=== PATIENT | female | born 1975 | race Caucasian/White ===

== ENCOUNTER 2020-06-05 11:10 | Outpatient (REF) | payer BC, SELFPAY ==
--- NOTE | 2020-06-05 08:45 | PAPFT_PTH ---
PATIENT: Karen Cody LOC: [facility] U#:[id number] AGE/SX: 44/F ROOM: RE06/05/[address]: Brandy Douglass NP : 1975 BED: DIS: 06/05/2020 SPEC #: [id number] RECD: 06/05/20 12:56 STATUS: ARTURO RERadha #: [id number] JANICE: 06/05/20 08:[address]: Brandy Douglass NP DEPT: [facility] Cytology RECD BY: Sangeetha Rao ENTERED: 06/05/20 12:56 SP TYPE: PAPFT CONNIE DR: Unknown,Unknown Tissues: 1 - CX/ENDOCX FOR PAP SMEARS Procedures: PAP THIN PREP/UVM Screening HPV DNA PROBE Comments: [id number] (CHLAMYDIA/GC)
[2020-06-06 13:57] LABS: Chlamydia Result Negative (Negative); GC Result Negative (Negative)
== END 2020-06-05 11:30 ==
LOC: LBN 11:10
PROVIDERS: Visit Provider Nurse Practitioner Women's Health
DX: Z11.51 Encounter for screening for human papillomavirus (HPV) (principal); Z11.3 Encounter for screening for infections with a predominantly sexual mode of transmission; Z12.4 Encounter for screening for malignant neoplasm of cervix
CPT/HCPCS: 87491; 87591; 88142; 87624

== ENCOUNTER 2020-09-09 14:42 | Outpatient (REF) | payer BC, SELFPAY ==
[2020-09-13 00:06] LABS: SARS-CoV-2 RNA Undetected (Undetected); SARS-CoV-2 Specimen Source Nasal
== END 2020-09-09 15:02 ==
LOC: NCHCN 14:42
PROVIDERS: PCP Nurse Practitioner Family; Visit Provider Nurse Practitioner Family
DX: R51.9 Headache, unspecified (principal)
CPT/HCPCS: U0003

== ENCOUNTER 2020-11-06 03:21 | Outpatient (CLI) | payer BC, SELFPAY ==
--- NOTE | 2020-11-06 11:00 | DI.MAMMO_ITS ---
EXAM: MG MAMMO SCREENING CLINICAL HISTORY: screening. TECHNIQUE: Bilateral full field digital CC and MLO mammographic images were obtained with 3D tomosyn thesis and utilizing computer aided detection (CAD). COMPARISON: Prior mammograms dating back to 2010, the most recent being May 2018.. FINDINGS: The fibroglandular tissue is moderately dense. No new significant radiograph findings in the left breast. It toward the upper outer quadrant of the right breast there is a nodular density noted which measures approximately 8 x 9 millimeters and is located approximately 7 centimetres in from the nipple, lateral of center. There are no malignant-ap pearing microcalcification groups in this region or elsewhere in either breast. Spot compression CC and MLO views recommended. Also recommend breast ultrasound. There is no significant architectural distortion nor skin thickening-retraction. IMPRESSION: No radiographic evidence of malignancy in the left breast.. Right breast nodule as described above. Spot compression 3D cc and MLO views recommended. Also milvia mmend breast ultrasound. BI-RADS Category 0 - Assessment Incomplete: Need additional imaging evaluation Breast Density - Category C - Heterogeneously dense Breast density Category C or D implies that the patient has dense breast tissue. Dense breast tissue can make it harder to find cancer on a mammogram. Dense breast tissue is also associated with an incr eased risk of breast cancer. This information about the result of the mammogram report was provided to the patient to raise their awareness. Use this report when you speak with the patient about their risks for breast cancer, which includes their family history. At that time, you may recommend additional screening tests (Ultrasoun d or MRI) as these tests may add significant information. A negative radiographic report should not delay biopsy if a dominant or clinically suspicious mass is present. Up to ten percent of cancers are not identified on mammography. A negative report may reinforce clinical impression. Adenosis and dense breasts may obscure an underlying neoplasm. False positive reports average 6 to 10%. Patient will receive a letter notifying them of these results.
== END 2020-11-06 03:41 ==
PROVIDERS: PCP Nurse Practitioner Family; Visit Provider Nurse Practitioner Women's Health
DX: Z12.31 Encounter for screening mammogram for malignant neoplasm of breast (principal); R92.8 Other abnormal and inconclusive findings on diagnostic imaging of breast
CPT/HCPCS: 77063; 77067

== ENCOUNTER 2020-11-13 03:06 | Outpatient (CLI) | payer BC, SELFPAY ==
--- NOTE | 2020-11-13 | DI.US_ITS ---
EXAM: US BREAST RT LIMITED CLINICAL HISTORY: F/U ABNL MAMMO, RT BREAST NODULE. TECHNIQUE: Limited ultrasound of the right breast was performed. COMPARISON: Prior mammograms were reviewed. Most recent mammogram 11/06/2020 FINDINGS: No evidence of solid or significant cystic lesions seen on ultrasound. This implies that the asymmetric density seen in the upper outer quadrant is most probably just asymm etric tissue as opposed to true pathology. IMPRESSION: No significant ultrasound findings Appropriate follow-up is repeat right breast mammogram in 6 months. Findings and recommendations were discussed by myself with the patient today. BI-RADS Category 3 - 3 month - Probably Benign Finding: Recommend follow-up mammography in 6 months Breast Density - Category C - Heterogeneously dense Breast density Category C or D implies that the patient has dense breast tissue. Dense breast tissue can make it harder to find cancer on a mammogram. Dense breast tissue is also associated with an incr eased risk of breast cancer. This information about the result of the mammogram report was provided to the patient to raise their awareness. Use this report when you speak with the patient about their risks for breast cancer, which includes their family history. At that time, you may recommend additional screening tests (Ultrasoun d or MRI) as these tests may add significant information. A negative radiographic report should not delay biopsy if a dominant or clinically suspicious mass is present. Up to ten percent of cancers are not identified on mammography. A negative report may reinforce clinical impression. Adenosis and dense breasts may obscure an underlying neoplasm. False positive reports average 6 to 10%. Patient will receive a letter notifying them of these results.
--- NOTE | 2020-11-13 14:20 | DI.MAMMO_ITS ---
EXAM: MG MAMMO SCREEN CALL BACK UNI CLINICAL HISTORY: F/U MAMMO, RT BREAST NODULE. TECHNIQUE: Bilateral full field digital CC and MLO mammographic images were obtained with 3D tomosyn thesis and utilizing computer aided detection (CAD). COMPARISON: Prior mammograms dating back to 2010, the most recent being November 06, 2020. FINDINGS: Additional spot compression mammographic 3D views are doubtful for presence of a truly concerning nod ule. Please note that breast ultrasound also performed today did not reveal significant focal findings. IMPRESSION: No radiographic evidence of malignancy. Appropriate follow-up is repeat right breast mammogram in 6 months. BI-RADS Category 3 - 6 month - Probably Benign Finding: Recommend follow-up mammography in 6 months Breast Density - Category C - Heterogeneously dense Breast density Category C or D implies that the patient has dense breast tissue. Dense breast tissue can make it harder to find cancer on a mammogram. Dense breast tissue is also associated with an incr eased risk of breast cancer. This information about the result of the mammogram report was provided to the patient to raise their awareness. Use this report when you speak with the patient about their risks for breast cancer, which includes their family history. At that time, you may recommend additional screening tests (Ultrasoun d or MRI) as these tests may add significant information. A negative radiographic report should not delay biopsy if a dominant or clinically suspicious mass is present. Up to ten percent of cancers are not identified on mammography. A negative report may reinforce clinical impression. Adenosis and dense breasts may obscure an underlying neoplasm. False positive reports average 6 to 10%. Patient will receive a letter notifying them of these results.
== END 2020-11-13 03:26 ==
PROVIDERS: PCP Nurse Practitioner Family; Visit Provider Nurse Practitioner Women's Health
DX: R92.8 Other abnormal and inconclusive findings on diagnostic imaging of breast (principal)
CPT/HCPCS: 76642; 77063; 77067

== ENCOUNTER 2020-12-19 16:17 | Outpatient (REF) | payer BC, SELFPAY ==
[2020-12-20 13:41] LABS: COVID-19 RT-PCR UVMMC Result Negative (Negative)
== END 2020-12-19 16:18 | disposition home or self-care (01) ==
LOC: NCHCN 16:17
PROVIDERS: PCP Nurse Practitioner Family; Visit Provider Nurse Practitioner Family
DX: Z20.822 Contact with and (suspected) exposure to COVID-19 (principal)
CPT/HCPCS: U0003

== ENCOUNTER 2021-04-23 16:31 | Outpatient (REF) | payer BC, SELFPAY ==
[2021-04-23 13:15] LABS: ALT 22 U/L (14-59); AST 15 U/L (15-37)
[2021-04-23 16:27] LABS: Calculated LDL 122 mg/dL (<100); Cholesterol 194 mg/dL (<200); HDL Cholesterol 56 mg/dL (40-60); Triglyceride 80 mg/dL (<150)
== END 2021-04-23 16:32 | disposition home or self-care (01) ==
LOC: NCHCN 16:31
PROVIDERS: PCP Nurse Practitioner Family; Visit Provider Nurse Practitioner Family
DX: Z00.00 Encounter for general adult medical examination without abnormal findings (principal); Z13.220 Encounter for screening for lipoid disorders
CPT/HCPCS: 80061; 84450; 84460

== ENCOUNTER 2021-05-14 02:22 | Outpatient (CLI) | payer BC, SELFPAY ==
--- NOTE | 2021-05-14 07:00 | DI.MAMMO_ITS ---
Exam(s) MAMMO DIAGNOSTIC UNI EXAM: MAMMO DIAGNOSTIC UNI CLINICAL HISTORY: F/u R breast, F/U ABNL MAMMO, 6 MO F/U,R92.8. TECHNIQUE: Unilateral spot CC mammographic images were obtained with 3D Tomosynthesistechnique and u tilizing computer aided detection (CAD). Also conventional CC and MLO views of the right breast. COMPARISON: Prior mammograms dating back to 2014, the most recent being November 2020. Ultrasound [facility] 2020 was also reviewed FINDINGS: The previously described asymmetric density in the right breast appears unchanged. Additional spot c ompression 3D view performed today renders this area less concerning. There are no malignant-appearing microcalcification groups in this region or elsewhere in the right b reast. No new architectural distortion or skin thickening-traction. IMPRESSION: Stable benign-appearing right breast findings described above. Appropriate follow-up is to keep this patient on her yearly mammogram schedule, this implying the nex t bilateral mammogram would be in November 2021. I recommend repeat ultrasound examination at that ti wi. Indeed, given the density of her fibroglandular tissue I suggest that she undergo bilateral [facility] ultrasound examination in November 2021. Of course earlier imaging would be performed if there is a self detected breast change noted. The patient was informed of the findings and follow-up recommendations [facility]. BI-RADS Category 3 - 6 month - Probably Benign Finding: Recommend follow-up mammography in 6 months Breast Density - Category C - Heterogeneously dense Breast density Category C or D implies that the patient has dense breast tissue. Dense breast tissue can make it harder to find cancer on a mammogram. Dense breast tissue is also associated with an incr eased risk of breast cancer. This information about the result of the mammogram report was provided to the patient to raise their awareness. Use this report when you speak with the patient about their risks for breast cancer, which includes their family history. At that time, you may recommend additional screening tests (Ultrasoun d or MRI) as these tests may add significant information. A negative radiographic report should not delay biopsy if a dominant or clinically suspicious mass is present. Up to ten percent of cancers are not identified on mammography. A negative report may reinforce clinical impression. Adenosis and dense breasts may obscure an underlying neoplasm. False positive reports average 6 to 10%. Patient will receive a letter notifying them of these results.
== END 2021-05-14 02:42 ==
PROVIDERS: PCP Nurse Practitioner Family; Visit Provider Nurse Practitioner Women's Health
DX: R92.8 Other abnormal and inconclusive findings on diagnostic imaging of breast (principal)
CPT/HCPCS: 77061; 77065; G0279

== ENCOUNTER 2021-06-02 20:18 | Emergency (ER) | payer BC, SELFPAY ==
[2021-06-02 20:21] VITALS: BP 129/83; PULSE 80; RESP 17; TEMP 36.8; O2SAT 99
--- NOTE | 2021-06-02 20:43 | W.ED.GENAD ---
Discharge Plan Disposition Patient Disposition: HOME Condition: Improving Discharge Details Clinical Impression: Pharyngitis Primary Care Provider: Lupe Gonzalez ED Provider: Dayo Jaimes Home Meds and New Rx's Prescriptions: New penicillin V potassium 500 mg tablet 500 mg PO TID 10 Days Qty: 30 RF: 0 Continued Mirena 1 EACH intrauterine device 1 ea Intrauterine DIRECTED RF: 0 acetaminophen [Tylenol Extra Strength] 500 MG tablet 500 mg PO PRN RF: 0 diphenhydramine HCl [Benadryl] 25 MG capsule 50 mg PO PRN RF: 0 paroxetine HCl 20 mg tablet 20 mg PO DAILY Qty: 30 RF: 5 hydroxyzine pamoate [Vistaril] 25 mg capsule 25 mg PO PRN PRNRF: 0 pregabalin 75 mg capsule 75 mg PO BID RF: 0 Discharge Instructions Instructions: Pharyngitis (ED) Additional Instructions: Take penicillin as prescribed. He will have a laboratory culture of the throat pending as well as your outpatient Covid test. Please follow-up with otolaryngology as planned. Home to rest this evening. Small, frequent sips of fluids to maintain hydration. Tylenol and ibuprofen as needed for pain. Return to the emergency department for any acute concerns. Stand Alone Forms: Work Release Medical Decision Making This is a 45-year-old female complains of 2 days of sore throat similar to previous episodes of streptococcal pharyngitis. She states she recently also traveled to [place] to visit her unimmunized parents. She states she has had a number of episodes of sore throat for which she has been evaluated at the [place] walk-in urgent care, diagnosed with strep on laboratory culture, and treated with a course of Keflex. Today she demonstrates erythematous oropharynx with scant exudate, has a negative rapid strep test which she states is the usual for me. I discussed with her proceeding with confirmatory laboratory culture, a course of penicillin given possibility of partially extruded strep infection, and her maintenance of follow-up as planned in otolaryngology clinic. We will also obtain a send out Covid test as a precaution. HPI General Mode of arrival: ambulatory. Date/Time Provider Initiated Documentation: 06/02/21 20:18. Limitations to Documentation: no limitations. Information obtained by: patient. History of Present Illness 45 year old F presents to the emergency department with the chief complaint of Sore throat, recurrent, described as moderate and similar to prior episodes, Quality is described as dull and constant, and is localized to the mouth. Patient reports no radiation. Patient started experiencing this day(s) and it has been constant. No relieving factors improve symptom(s), No exacerbating factors reported . Patient notes denies chest pain, loss of appetite, nausea/vomiting and shortness of breath. Related Data Home Medications Medication Instructions Recorded Confirmed Mirena 1 ea INTRAUTERINE DIRECTED 01/03/14 06/02/21 acetaminophen [Tylenol Extra 500 mg PO PRN tab-cap 12/13/14 06/02/21 Strength] diphenhydramine HCl [Benadryl] 50 mg PO PRN tab-cap 12/13/14 06/02/21 paroxetine HCl 20 mg tablet 20 mg PO DAILY #30 tab 03/06/19 06/02/21 hydroxyzine pamoate [Vistaril] 25 mg PO PRN PRN 06/02/21 06/02/21 penicillin V potassium 500 mg PO TID 10 Days #30 tab 06/02/21 pregabalin 75 mg PO BID 06/02/21 06/02/21 Previous Rx's Medication Instructions Recorded paroxetine HCl 20 mg tablet 20 mg PO DAILY #30 tab 03/06/19 penicillin V potassium 500 mg PO TID 10 Days #30 tab 06/02/21 Allergies Allergy/AdvReac Type Severity Reaction Status Date / Time Sulfa (Sulfonamide Allergy Skin Rash Unverified 06/02/21 20:24 Antibiotics) erythromycin base AdvReac Intermediate GI upset Unverified 06/02/21 20:24 General Stated Complaint: Sorethroat KRYSTAL: 4 Review of Systems Narrative: No vomiting, tolerating p.o., no change to her voice or swallowing. 6 systems reviewed and otherwise negative [facility] Medical History Anxiety controlled with Paxil Depression Fibromyalgia syndrome (11/06/17) dx by rheumatolgy Center [facility] [place] IUD surveillance (06/05/20) Vitamin D deficiency disease Surgical History Cervical Procedure 1998 LEEP Left knee lateral release Open Carpal Tunnel release (12/25/14) L hand. Right knee meniscus tear repair Family History Mother , COPD at age 58. COPD (chronic obstructive pulmonary disease) Paternal Grandmother Breast cancer Other Heart disease Social History Smoking/Tobacco Use Status: Former Tobacco Use Smoking risk assessment performed?: Yes Alcohol Intake: current Alcohol Intake frequency: 0-2 drinks per day Drug use: Never Substance use type: does not use Do you feel safe at home: Yes Do you feel safe in your relationship?: Yes History History 3 Para 2 Hx # Term Pregnancies Multiple births Hx # Pregnancies Ectopic pregnancies AB induced Hx Number of Living Children AB spontaneous Exam Narrative Exam Narrative: GEN: awake, alert, oriented 3. Pleasant, well groomed, interactive. HEAD: Normocephalic, atraumatic ENT: Mucous membranes moist, oropharynx with erythematous tonsillar pillars, discrete white exudate right posterior. Uvula is midline. There is mild anterior submandibular present. Tympanic membranes clear bilaterally, External ear exam unremarkable EYES: PERRL, EOMI NECK: Full ROM, no DOMINGO, no menigismus CHEST/RESP: Nontender, clear to auscultation bilateral, no wheeze/rhonchi/rales CARDIOVASCULAR: RRR, no murmur, rub dodie. 2+ Rad pulse bilateral EXT: Full ROM, no edema, no rash Neuro: Grossly normal neurologic exam, conversant, interactive. Psych: Speech fluent, thoughts congruent, affect normal Course Vital Signs Vital signs: Vital Signs Temperature 36.8 C 06/02/21 20:21 Pulse 80 06/02/21 20:21 Respiratory Rate 17 06/02/21 20:21 Blood Pressure 129/83 06/02/21 20:21 Pulse Oximetry 99 06/02/21 20:21 Temperature 36.8 C 06/02/21 20:21 Temperature Source Temporal Artery Scan 06/02/21 20:21 Pulse 80 06/02/21 20:21 Respiratory Rate 17 06/02/21 20:21 Respiratory Effort Non-Labored 06/02/21 20:23 Blood Pressure 129/83 06/02/21 20:21 Blood Pressure Position Sitting 06/02/21 20:21 Pulse Oximetry 99 06/02/21 20:21 Oxygen Delivery Method Room Air 06/02/21 20:21 Oxygen Flow Rate 0 06/02/21 20:21 Pain Level 7 06/02/21 20:21 Lab/Test Results Lab/Test Results: 06/02/21 20:30 Tonsil - Right Group A Streptococcus Culture - Pending POC Strep Test-AYESHA(Rapid) Start: 06/02/21 20:23 Freq: .Rapid Strep Test Status: Active Protocol: Document 06/02/21 20:36 (Rec: 06/02/21 20:36 [id number]) Strep test-AYESHA(Rapid)-POC POC-Strep test-AYESHA (Rapid) Negative POC-Strep test-AYESHA (Rapid) Negative
[2021-06-02] MEDS: Penicillin V POTASSIUM 500 MG TAB, 4 TABS/BTL PO (20:54)
[2021-06-04 13:53] LABS: COVID-19 RT-PCR UVMMC Result Negative (Negative)
== END 2021-06-02 20:57 | disposition home or self-care (01) ==
PROVIDERS: Emergency Provider Emergency Medicine; PCP Nurse Practitioner Family
DX: J02.8 Acute pharyngitis due to other specified organisms (principal); Z20.822 Contact with and (suspected) exposure to COVID-19; Z03.818 Encounter for observation for suspected exposure to other biological agents ruled out
CPT/HCPCS: 87880; 99283; U0003; 87081

== ENCOUNTER 2021-10-10 00:54 | Outpatient (CLI) | payer BC, SELFPAY ==
[2021-10-10 10:51] LABS: Source Nasal/Nares
[2021-10-10 19:09] LABS: COVID-19 PCR Negative (Negative)
== END 2021-10-10 00:55 | disposition home or self-care (01) ==
PROVIDERS: PCP Nurse Practitioner Family; Visit Provider Otolaryngology
DX: Z20.822 Contact with and (suspected) exposure to COVID-19 (principal); Z01.818 Encounter for other preprocedural examination
CPT/HCPCS: 87635

== ENCOUNTER 2021-10-13 08:22 | Day surgery (SDC) | payer BC, SELFPAY ==
[2021-10-13] VITALS (7 sets, daily range): BP systolic 108–129; BP diastolic 65–83; PULSE 74–78; RESP 13–19; TEMP 36.3–37.3; O2SAT 94–98; BMI 33.0
[2021-10-13] MEDS: Lactated Ringers 1,000 ML 80 ML IV (08:55)
--- NOTE | 2021-10-13 09:43 | W.ANESPRE ---
General Info Date of Service Date Performed: 10/13/21 Height: 5 ft 1 in Weight: 79.379 kg Body Mass Index (BMI): 33.0 Surgical Procedure: Operation Date: 10/13/21 09:25 Proposed Procedures Side Surgeon p Tonsillectomy & Adenoidectomy Lee Chase MD Meds Allergies and Home Medications Allergies Allergy/AdvReac Type Severity Reaction Status Date / Time Sulfa (Sulfonamide Allergy Skin Rash Verified 10/13/21 08:37 Antibiotics) erythromycin base AdvReac Intermediate GI upset Verified 10/13/21 08:37 Home Medication Medication Instructions Recorded Mirena 1 ea INTRAUTERINE DIRECTED 01/03/14 acetaminophen [Tylenol Extra 500 mg PO PRN tab-cap 12/13/14 Strength] diphenhydramine HCl [Benadryl] 50 mg PO PRN tab-cap 12/13/14 paroxetine HCl 20 mg tablet 20 mg PO DAILY #30 tab 03/06/19 hydroxyzine pamoate [Vistaril] 25 mg PO PRN PRN 06/02/21 pregabalin 75 mg PO BID 06/02/21 triamcinolone acetonide 0.1 % 1 applic TOPICAL BID 06/19/21 topical cream Current Visit Medications: Current Medications Generic Name Dose Route Start Last Admin Trade Name Freq PRN Reason Stop Dose Admin Dexamethasone 12 mg 10/13/21 06:00 Dexamethasone 4 Mg/Ml Vial IVP 10/13/21 16:00 PREOP KENISHA Ringer's Solution 1,000 mls @ 80 mls/hr 10/13/21 06:00 10/13/21 08:55 IV 11/09/21 23:59 80 mls/hr INFUSION KENISHA Administration Cefazolin Sodium/Dextrose 2 gm in 50 mls @ 100 mls/hr 10/13/21 06:00 Ancef Duplex IVPB 10/13/21 16:00 PREOP KENISHA Tranexamic Acid 800 mg/ Sodium 58 mls @ 348 mls/hr 10/13/21 06:00 Chloride IVPB 10/13/21 16:00 DIRECTED KENISHA IV Miscellaneous Supplies 1 each 10/13/21 06:00 Iv Access IV 11/09/21 23:59 DIRECTED KENISHA Sodium Chloride 0 ml 10/13/21 06:00 Normal Saline Flush 10 Ml Syr IV 11/09/21 23:59 PRN PRN Sodium Chloride 0 ml 10/13/21 06:00 Normal Saline 10 Ml Vial IJ 11/09/21 23:59 DIRECTED PRN Sterile Water 0 ml 10/13/21 06:00 Water,Injection,Sterile 10 Ml Vial IJ 11/09/21 23:59 DIRECTED PRN PFSH Active Problems Active Problems: Problem Status Onset Code Chronic streptococcal tonsillitis J35.01, 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 Right knee meniscus tear repair Tobacco Smoking/Tobacco Use Status: Former Tobacco Use Alcohol Alcohol Intake: current Alcohol intake frequency: 0-2 drinks per day Substance Use Substance use: Never Substance use type: does not use Details: mother had unknown anesthesia complications per patient Prental History History 3 Para 2 Hx # Term Pregnancies Multiple births Hx # Pregnancies Ectopic pregnancies AB induced Hx Number of Living Children AB spontaneous Vital Signs and Lab Results Vital Signs Most Recent Vital Signs in EMR: Most Recent Vital Signs Temp Pulse Resp BP Pulse Ox 37.3 C 74 16 122/78 98 10/13/21 08:30 10/13/21 08:30 10/13/21 08:30 10/13/21 08:30 10/13/21 08:30 Point of Care Results Point of Care Results: POC- Test(urine) Negative 10/13/21 08:50 Lab Results Blood Type / Crossmatch: No Data to Display Complete Blood Count: No Data to Display Complete Metabolic Panel: No Data to Display Liver Function Panel: No Data to Display Coagulation Panel: No Data to Display Cardiac Panel: No Data to Display Arterial Blood Gas: No Data to Display Venous Blood Gas: No Data to Display Pancreas Panel: No Data to Display Thyroid Panel: No Data to Display Infectious Disease: Coronavirus (COVID-19)(PCR) Negative (Negative) 10/10/21 09:00 10/10/21 Coronavirus 2019 Source Nasal/Nares 10/10/21 09:00 10/10/21 Blood Cultures: No Data to Display Toxicology Panel: No Data to Display Panel: No Data to Display Anesthesia Assessment and Plan Anesthesia History Personal History: No History of Anesthesia Complications Family History: Other Exercise Tolerance Exercise Tolerance: Metabolic Equivalents>4 Pertinent Negatives Pertinent Negatives: No Symptoms of GERD, No Major Cardiovascular Symptoms or Complaints, No Major Pulmonary Symptoms or Complaints and No History of CVA/TIA Cardiac & Pulmonary Exam Cardiac Exam: Normal S1/S2 Heart Sounds Pulmonary Exam: Clear Bilateral Breath Sounds Implantable Cardiac Device Does patient have a Pacemaker or an ICD?: No Airway Exam Known Difficult Airway: No Mallampati Class: 1 Mouth Opening: Normal (> 3cm) Thyromental Distance: Greater than 3 cm Neck Range of Motion: Full ROM Neck Circumference: Normal Teeth Condition: Normal Dentition ASA Classification ASA Score: ASA 2 Emergency Case?: No NPO Status NPO Status: NPO Clears >2 hours, Solids >8 hours Status Status: Negative HCG Anesthesia Plan Resuscitation Status: Full Code Anesthesia Technique: General Anesthesia Airway Planned: Endotracheal Tube Monitors Used: Standard Monitors
[2021-10-13] MEDS: ceFAZolin 2 GM/50 ML BAG IVPB (10:16)
--- NOTE | 2021-10-13 10:38 | TONSIL_PTH ---
PATIENT: Karen Cody LOC: [facility] U#:[id number] AGE/SX: 45/F ROOM: RE10/13/[address]: Lee Chase MD : 1975 BED: DIS: 10/13/2021 SPEC #: [id number] RECD: 10/13/21 12:46 STATUS: ARTURO REQ #: [id number] JANICE: 10/13/21 10:[address]: Lee Chase DEPT: Surgical Specimen RECD BY: Sangeetha Rao ENTERED: 10/13/21 12:46 SP TYPE: TONSIL OTHR DR: Lupe Gonzalez Tissues: 1 - TONSIL AGE 17 & OVER 2 - TONSIL AGE 17 & OVER Procedures: GROSS AND MICRO LEVEL 3 Comments: [id number]
--- NOTE | 2021-10-13 11:08 | PDOC.DSDIS_ITS ---
Discharge Plan Disposition Patient Disposition: HOME Condition: Good Discharge Details Reason For Visit: Tonsillectomy Attending Provider: Lee Chase Primary Care Provider: Lupe Gonzalez Home Meds and New Rx's Prescriptions: No Action triamcinolone acetonide 0.1 % cream 1 applic topical BID RF: 0 Mirena 1 EACH intrauterine device 1 ea Intrauterine DIRECTED RF: 0 acetaminophen [Tylenol Extra Strength] 500 MG tablet 500 mg PO PRN RF: 0 diphenhydramine HCl [Benadryl] 25 MG capsule 50 mg PO PRN RF: 0 paroxetine HCl 20 mg tablet 20 mg PO DAILY Qty: 30 RF: 5 hydroxyzine pamoate [Vistaril] 25 mg capsule 25 mg PO PRN PRNRF: 0 pregabalin 75 mg capsule 75 mg PO BID RF: 0 Discharge Instructions Stand Alone Forms: Anesthesia Discharge Inst., Ambar Sweet ([facility]), ENT- T&A Instr. Rena Referrals: Lee Chase MD [ [facility] STAFF PHYSICIAN] - (1 month, please call for appointment)
--- NOTE | 2021-10-13 11:10 | W.PM.OP ---
Operative Note Operative Note DATE OF PROCEDURE: 10/13/21 PRE-OP DIAGNOSIS: Chronic strep tonsillitis POST-OP DIAGNOSIS: same PROCEDURE: Tonsillectomy SURGEON: Lee Chase ANESTHESIA TYPE: General LMA/ETT Refer to Anesthesia Record ESTIMATED BLOOD LOSS: 100 PATHOLOGY: other (Tonsils) COMPLICATIONS: None Patient was transported to: PACU Patient's condition: stable Indications: Patient with the above problems. Options were explained to the patient regarding further management. She elected to undergo the proposed procedure. Findings: 3+ cryptic tonsils, atrophic adenoids, palate intact to inspection and palpation Procedure Description: After obtaining an adequate level of general endotracheal anesthesia the patient was positioned in the supine position and prepped and draped in appropriate fashion. A Tamiko-Rosalino mouthgag was carefully introduced into the oral cavity and opened to reveal the soft and hard palate which were examined revealing no evidence of an occult cleft palate adenoids were examined revealing no residual adenoid. Each tonsil was pulled medially and posteriorly and 0.5% Marcaine with 1/100,000 epinephrine was injected into the submucosal space around the tonsil. Each tonsil was then incised along the anterior, superior, and posterior mucosa and then a Tanner elevator was used to disarticulate the tonsil from the tonsillar fossa superiorly and then a Helm blade used to strip the tonsil from the tonsil bed down to the inferior pole at which point in time a tonsillar snare was used to amputate the tonsil from the tonsillar fossa. Once this been accomplished bilaterally, electrocautery suction catheter set on 15 W coagulation was used to achieve relative hemostasis. Also left failed to produce any further bleeding. The Tamiko-Rosalino mouth gag was relaxed and reopened revealing no further bleeding. The Tamiko Rosalino mouthgag was then removed and the patient was awakened and extubated by anesthesia and taken to recovery room in stable condition. I was present throughout the entire case.
[2021-10-13] MEDS: HYDROcodone 5/Acetaminophen 325 TAB PO (11:53)
--- NOTE | 2021-10-13 12:21 | W.ANESPOSTOP ---
Postoperative Evaluation Date, Time and Location Date Performed: 10/13/21 Time Performed: :21 Patient Location: Day Surgery Unit Vital Signs Most Recent Imported Vital Signs: Most Recent Vital Signs Temp Pulse Resp BP Pulse Ox 36.4 C L 78 16 118/83 96 10/13/21 12:18 10/13/21 12:18 10/13/21 12:18 10/13/21 12:18 10/13/21 12:18 Pain Score Most Recent Pain Score: Most Recent Pain Score Pain Level 5 10/13/21 12:18 Assessment Mental Status: Awake (Alert & Oriented to Patient Baseline) Airway and Respiratory Function: Patent airway with normal (patient baseline) respiratory exam Cardiovascular Function: Hemodynamically Stable Hydration Status: Adequately Hydrated Nausea & Vomiting: No Nausea or Vomiting Pain: Pain is tolerable per patient Peripheral Nerve Block: Patient did not receive a nerve block Teaching Patient Teaching: Other (Discussed other form of control for next week due to sugammadex)
== END 2021-10-13 12:36 | disposition home or self-care (01) ==
PROVIDERS: PCP Nurse Practitioner Family; Visit Provider Otolaryngology
PROC: (CPT 42826; principal; 2021-10-13 09:15)
DX: J03.01 Acute recurrent streptococcal tonsillitis (principal); L30.9 Dermatitis, unspecified; Z87.891 Personal history of nicotine dependence
CPT/HCPCS: 42826; 88304; J0131; J0690; J1100; J2001; J2405; J2704; J3010

== ENCOUNTER 2021-12-04 01:59 | Outpatient (CLI) | payer BC, SELFPAY ==
--- NOTE | 2021-12-04 15:00 | DI.MAMMO_ITS ---
Exam(s) MAMMO SCREENING EXAM: MAMMO SCREENING CLINICAL HISTORY: screening TECHNIQUE: Mammograms were interpreted according to the usual protocol including computer analysis w [employer] [place] CAD system, tomosynthesis and C-view imaging. COMPARISON: FINDINGS: The breasts are of moderate density with fairly symmetrical distribution of fibroglandular tissue. N o dominant mass or clumped microcalcification is identified in either breast. The current examinatio n is compared with previous examinations including November 2020 and there is question of increased pr ominence of an area of asymmetric density projected in the medial central portion of the right breast on CC view. Additional mammographic views of this area are requested to include CC spot compression view of the right breast. No other significant change seen. IMPRESSION: Additional mammographic views of the right breast are requested as described above. Breast ultrasoun d may be indicated as well depending on the results of the additional mammographic views. BI-RADS Category 0 - Assessment Incomplete: Need additional imaging evaluation Breast Density - Category B - Scattered areas of fibroglandular density
== END 2021-12-04 02:19 ==
PROVIDERS: PCP Nurse Practitioner Family; Visit Provider Nurse Practitioner Family
DX: Z12.31 Encounter for screening mammogram for malignant neoplasm of breast (principal); R92.8 Other abnormal and inconclusive findings on diagnostic imaging of breast
CPT/HCPCS: 77063; 77067

== ENCOUNTER 2021-12-18 01:06 | Outpatient (CLI) | payer BC, SELFPAY ==
--- NOTE | 2021-12-18 | DI.US_ITS ---
Exam(s) MG MAMMO SCREEN CALL BACK UNI US BREAST RT LIMITED EXAM: MG MAMMO SCREEN CALL BACK UNI and U/S breast RT limited CLINICAL HISTORY: ASYMMETRIC DENSITY RT BREAST. TECHNIQUE: Craniocaudal and mediolateral oblique Full Field Digital Mammography views of the right b reast with Computer Aided Diagnosis followed by Tomosynthesis and right breast ultrasound. COMPARISON: Priors available for comparison. FINDINGS: Mammography/Tomosynthesis: Masses/Architectural Distortion: None seen. Microcalcifictions: No suspicious pleomorphic-type are seen. Skin Thickening/Nipple Retraction: None. Limited right breast US: Echotexture: Normal appearance of the glandular tissue. Shadowing: No suspicious foci. Cyst: None. Solid lesions: None seen. Ductal dilation: None. IMPRESSION: 1. No evidence of malignancy is noted. 2. A six-month follow-up right mammogram is recommended for re-evaluation. 3. The findings were discussed with the patient on the date of the examination. BI-RADS Category 3 - 6 month - Probably Benign Finding: Recommend follow-up imaging in 6 months Breast Density - Category B - Scattered areas of fibroglandular density Breast density Category C or D implies that the patient has dense breast tissue. Dense breast tissue can make it harder to find cancer on a mammogram. Dense breast tissue is also associated with an incr eased risk of breast cancer. This information about the result of the mammogram report was provided to the patient to raise their awareness. Use this report when you speak with the patient about their risks for breast cancer, which includes their family history. At that time, you may recommend additional screening tests (Ultrasoun d or MRI) as these tests may add significant information. A negative radiographic report should not delay biopsy if a dominant or clinically suspicious mass is present. Up to ten percent of cancers are not identified on mammography. A negative report may reinforce clinical impression. Adenosis and dense breasts may obscure an underlying neoplasm. False positive reports average 6 to 10%. Patient will receive a letter notifying them of these results.
== END 2021-12-18 01:26 ==
PROVIDERS: PCP Nurse Practitioner Family; Visit Provider Nurse Practitioner Family
DX: R92.8 Other abnormal and inconclusive findings on diagnostic imaging of breast (principal)
CPT/HCPCS: 76642; 77063; 77067

== ENCOUNTER → 2022-07-17 00:41 | Outpatient (CLI) | payer BC, SELFPAY ==
--- OUTSIDE RECORDS SUMMARY | 2022-07-17 00:48 | XMS_ITS | Encounter Summary ---
:1975 Author Organization [facility] Address [address] [place] [address] Care Team Providers Name Role Phone Unknown, Provider MD Primary Care Provider Encounter Details Date Type Department Care Team Description 10/13/2021 Lab Requisition [facility] Lee Chase MD Encounter for other Pathology [address] general examination [facility] [id number] [address] [facility] [phone] [place] [address] (Work) [phone] Social History Tobacco Use Types Packs/Day Years Used Date Never Assessed Sex Assigned at Date Recorded Not on file documented as of this encounter Plan of Treatment Not on filedocumented as of this encounter Procedures Procedure Name Priority Date/Time Associated Diagnosis Comme nts SURGICAL PATHOLOGY Today 10/13/2021 10:38 Encounter for othe r Results for this EST general examination procedur e are in the results section. documented in this encounter Results SURGICAL PATHOLOGY (10/13/2021 10:38 EST) Note to Patient The following [facility] MEDICAL pathology results CENTER have been interpreted LABORATORY by your pathologist SERVICES and may be available to you before your health provider has had the opportunity to review them. Please allow time for your provider to receive these results and explore management options, if applicable. Final Diagnosis A. TONSIL, RIGHT, TONSILLECTOMY: [facility] M EDICAL - Tonsil with reactive folli cular hyperplasia and focal acute inflammation with ulceration of the crypt epithelium. CENTER LABORATORY B. TONSIL, LEFT, TONSILLECTOMY: SERVICES - Tonsil with reactive follicular hyperplasia. Attestation There was significant [facility] MEDICAL Electr onically resident/fellow CENTER signed by Krystal lee, involvement in the LABORATORY Airam preston MD on diagnostic evaluation SERVICES 2020 at 1658 of this case. By the signature below, the attending physician certifies that they have personally conducted a gross and/or microscopic examination of the described specimens and rendered or confirmed the above diagnosis. Clinical History Chronic streptococcal [facility] tonsillitis CENTER LABORATORY SERVICES Gross Description A. [facility] MEDICAL Received in formalin ludmila d with proper patient identification (initials R, J) and right tonsil is a palatine tonsil (2.4 x 1.5 x 1.0 cm Erosive). The mucosa is smooth and glistening with prominent CENTER crypts. Serial sections reve al lobular homogeneous tissue with crypts containing gill-yellow granular debris. Two bilingual sales representative sections are submitted in A1. LABORATORY SERVICES B. Received in formalin ludmila d with proper patient identification (initials R, J) and left tonsil is a palatine tonsil (2.5 x 1.2 x 1.0 cm). The mucosa is smooth and glistening with prominent crypts. S erial sections reveal lobula r homogeneous tissue with crypts containing gill- yellow granular debris. Two bilingual sales representative sections are submitted in B1. JOSETTE MEDEROS(ASCP) 10/14/2021 10:02 Resident/Fellow: Jonatan Mcdonald MD [facility] Performing Lab [facility] Scanned Images [facility] Specimen Tissue - Specimen from tonsil (specimen) Tissue specimen (specimen) - Specimen fr om tonsil (specimen) Performing Organization Address City/State/ZIP Code Phon e Number [facility] [address] [place] [address] SERVICES documented in this encounter Visit Diagnoses Diagnosis Encounter for other general examination documented in this encounter Care Teams Batch Tester Relationship Specialty Start Date End Date Unknown, Provider, PCP - General 09/18/15 documented as of this encounter
--- OUTSIDE RECORDS SUMMARY | 2022-07-17 00:48 | XMS_ITS | Clinical Summary ---
:[address] [facility] Address [address] [place] [address] Care Team Providers Name Role Phone Unknown, Provider Primary Care Provider Social History Tobacco Use Types Packs/Day Years Used Date Never Assessed Sex Assigned at Date Recorded Not on file Plan of Treatment Health Maintenance Due Date Last Done Comments Hepatitis C Screen 1975 COVID-19 Vaccine (1) 1978 Insurance Payer Benefit Plan / Subscriber ID Effective Phone Address T ype Group Dates BS [facility] [id number] 2018-[facility] [phone] [address] [employer] [address] [place] [address] Karen Segovia Personal/Family Self 1975 [phone] [id number] (Home) [place] [address] Karen Segovia Personal/Family Self 1975 [phone] [id number] (Home) [place] [address] Care Teams Financial Institution President Relationship Specialty Start Date End Date Unknown, Provider, PCP - General 09/18/15
--- OUTSIDE RECORDS SUMMARY | 2022-07-17 00:48 | XMS_ITS | Encounter Summary ---
:1975 Author Organization [facility] [address] Care Team Providers Name Role Phone Criss Acharya MD Primary Care Provider Reason for Visit Reason Onset Date Comments Referral 12/23/2017 Encounter Details Date Type Department Care Team Description 12/23/2017 Telephone Rheumatology at [facility] [place] [address] Social History Tobacco Use Types Packs/Day Years Used Date Never Smoker Smokeless Tobacco: Never Used Sex Assigned at Date Recorded Not on file documented as of this encounter Miscellaneous Notes Telephone Encounter - Mino Love RN - 12/24/2017 11:48 AM EST Patient completed [facility] sleep program questions and has been faxed to [facility] program. Telephone Encounter - Mino Love RN - 12/23/2017 9:54 AM EST Call placed to patient. [facility] sleep program paper work to be completed, questionaire requires completion answers from patient. Left message with call back number. documented in this encounter Plan of Treatment Not on filedocumented as of this encounter Visit Diagnoses Not on filedocumented in this encounter Care Teams Freight Traffic Consultant Relationship Specialty Start Date End Date Criss Acharya MD PCP - General Family Medicine 12/15/17 [address] [place] [address] documented as of this encounter
--- OUTSIDE RECORDS SUMMARY | 2022-07-17 00:48 | XMS_ITS | Encounter Summary ---
:1975 Author Organization [facility] [place] [address] Care Team Providers Name Role Phone Criss Acharya MD Primary Care Provider Reason for Visit Reason Onset Date Comments Medication Refill 04/15/2018 Encounter Details Date Type Department Care Team Description 04/15/2018 Refill Rheumatology at [facility] [place] Prachi Garza MD [facility] [place] [address] Rheumatology Dept [phone] [place], [place] [address] (Wo rk) Social History Tobacco Use Types Packs/Day Years Used Date Never Smoker Smokeless Tobacco: Never Used Sex Assigned at Date Recorded Not on file documented as of this encounter Plan of Treatment Not on filedocumented as of this encounter Visit Diagnoses Not on filedocumented in this encounter Care Teams Tobacco Drying Machine Operator Relationship Specialty Start Date End Date Criss Acharya MD PCP - General Family Medicine 12/15/17 [address] [place], [place] [address] documented as of this encounter
--- OUTSIDE RECORDS SUMMARY | 2022-07-17 00:48 | XMS_ITS | Encounter Summary ---
:1975 Author Organization [facility] Address [address] [place] [address] Care Team Providers Name Role Phone Criss Acharya MD Primary Care Provider Encounter Details Date Type Department Care Team Description 03/09/2018 Office Visit Rheumatology at [facility] Manpreet Garza; [facility] MD Prachi Osteoarthritis, unspecified osteoarthrit is type, unspecified site; [facility] [place] [address] Center [phone] [place] [address] Social History Tobacco Use Types Packs/Day Years Used Date Never Smoker Smokeless Tobacco: Never Used Sex Assigned at Date Recorded Not on file documented as of this encounter Last Filed Vital Signs Vital Sign Reading Time Taken Comments Blood Pressure 117/63 03/09/2018 8:20 AM EDT Pulse 76 03/09/2018 8:20 AM EDT Temperature 37 ??C (98.6 ??F) 03/09/2018 8:20 AM EDT Respiratory Rate - - Oxygen Saturation 100% 03/09/2018 8:20 AM EDT Inhaled Oxygen Concentration - - Weight 69.4 kg (153 lb) 03/09/2018 8:20 AM EDT Height 156.2 cm (5' 1.5) 03/09/2018 8:20 AM EDT Body Mass Index 28.44 03/09/2018 8:20 AM EDT documented in this encounter Progress Notes Prachi Garza MD - 03/09/2018 8:30 AM EDT HPI: The patient returns for follow up of arthralgias, myalgias. Initially seen on 12/15/17. Since last seeing the patient, reviewed blood work RF,CCP, ESR, CRP, TSH WNL. On 01/26/18, participated in fibro SMA. Vitamin D 21, completed cholecalciferol 50,000 units for 8 weeks. Now on OTC vitamin D3 daily. Not sure about the dose. Started naproxen in December. Takes it as needed and it helps. Melatonin 3 or 5 mg ??, OTC for sleep, initially took it every day. Now sleeping better, forgets to take it at times. Still wakes up tired. Has good and bad days. Sleep study consult scheduled for April 26. Most pain in knees. S/P surgery in both knees.Naproxen helps with knee pain. Generalized stiffness in the morning. Physical exam: Gen: Patient is awake, alert and oriented x 3, in no distress Skin: warm and dry, no rheumatologic rashes Lymph: no cervical or submandibular adenopathy Thyroid: no nodules or thyromegaly Mouth: moist mucous membranes, no oral ulcers Eyes: normal sclerae Spine: normal ROM and no tenderness Joints: No active synovitis. FROM in all joints. Bilateral knee crepitus L>R. Positive FM tender points. 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 Fatigue. Former smoker. No known autoimmune disease in the family. Based on history, exam, negative serologies, normal inflammatory markers, believe patient has fibromyalgia. 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 No evidence of inflammatory arthritis. ROSnegative for CTD. 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 Vitamin D deficiency, continue vitamin D3 2000 units daily. Naproxen 500 mg bid as needed. Melatonin to help with sleep as needed. Takes benadryl 50 mg 1-2 times daily for allergies as neededwith no effect on sleep. Sleep study consultation scheduled in April for evaluation of obstructive sleep apnea. 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 documented in this encounter Plan of Treatment Not on filedocumented as of this encounter Visit Diagnoses Diagnosis Fibromyalgia Mylagia and myositis, unspecified Osteoarthritis, unspecified osteoarthrit is type, unspecified site Vitamin D deficiency Unspecified vitamin D deficiency documented in this encounter Care Teams Associate Professor Of Law Relationship Specialty Start Date End Date Criss Acharya MD PCP - General Family Medicine 12/15/17 [address] [place] [address] documented as of this encounter
--- OUTSIDE RECORDS SUMMARY | 2022-07-17 00:48 | XMS_ITS | Encounter Summary ---
:1975 Author Organization [facility] Address [address] [place] [address] Care Team Providers Name Role Phone Unknown, Provider Primary Care Provider Encounter Details Date Type Department Care Team Description 12/19/2020 Lab Requisition [facility] Outr Resulting Lab, Pathology & Laboratory Provider [facility] [address] [place] [address] Social History Tobacco Use Types Packs/Day Years Used Date Never Assessed Sex Assigned at Date Recorded Not on file documented as of this encounter Plan of Treatment Not on filedocumented as of this encounter Procedures Procedure Name Priority Date/Time Associated Diagnosis Comme nts COVID-19 TEST [facility] Today 12/19/2020 10:30 LAB PCR EST COVID-19 TESTING Routine 12/19/2020 10:30 Results for this EST procedure are i n the results section. documented in this encounter Results COVID-19 TEST [facility] LAB PCR (12/19/2020 10:30 EST) Specimen Swab - Entire nasopharynx (body structur e) Performing Organization Address City/State/ZIP Code Phon e Number [facility] [address] [place] [address] SERVICES COVID-19 TESTING (12/19/2020 10:30 EST) COVID-19 rt-PCR Negative Negative [facility] MEDICAL Result Comment: CENTER LABORATORY This test was developed and its performance characteristics determined by [facility]. It has not been cleared or approved by the US Food and Drug Administration. FDA does not require this test to go through SERVICES premarket FDA review. This t est is used for clinical purposes. It should not be regarded as investigational or for research. This laboratory is certified under the Clinical Laboratory Improvement Amendm ents (CLIA) as qualified to perform high complexity clinical laboratory testing. This test is based on the CD C COVID-19 Emergency Use Authorization (EUA) assay, with minor modification as defined by the FDA Performed on the ibabybox Pro RT-PCR System. This test has not been FDA c leared or approved. This test has been authorized by FDA under an EUA for use by authorized laboratories. This test has been authorized only for detection of nucleic acid fro m 2019-nCoV, not for any oth er viruses or pathogens. This test is only authorized for the duration of the declaration that circumstances exist justifying the authorization of emergency use of in vitro d iagnostic tests for detectio n and/or diagnosis of 2019-nCoV under section 564(b)(1) of Act, 21 U.S.C ?? 360bbb-3(b) (1), unless the authorization is terminated or revoked sooner. Negative results do not prec lude 2019-nCoV infection and should not be used as the sole basis for treatment or other patient management decisions. Negative results must be combined with clinical observa tions, patient history, and epidemiological informatio n. Performing Lab [facility] Lab [facility] SERVICES Specimen Swab Performing Organization Address City/State/ZIP Code Phon e Number [facility] [address] [place] [address] SERVICES documented in this encounter Visit Diagnoses Not on filedocumented in this encounter Care Teams Microbiology Professor Relationship Specialty Start Date End Date Unknown, Provider, PCP - General 09/18/15 documented as of this encounter
--- OUTSIDE RECORDS SUMMARY | 2022-07-17 00:48 | XMS_ITS | Encounter Summary ---
:1975 Author Organization [facility] [place] [address] Care Team Providers Name Role Phone Criss Acharya MD Primary Care Provider Encounter Details Date Type Department Care Team Description 12/22/2017 Telephone [place] [facility] Mino Love, [place] [address] Social History Tobacco Use Types Packs/Day Years Used Date Never Smoker Smokeless Tobacco: Never Used Sex Assigned at Date Recorded Not on file documented as of this encounter Miscellaneous Notes Telephone Encounter - Mino Love RN - 12/22/2017 2:31 PM EST Patient updated on labs, vitamin D low. Provided with instruction of cholecalciferol 50,000 units once weekly for 8 weeks followed by otc vitamin d3 2000 units daily with prescription having been sent to [facility]. Patient expressed understanding and in agreement with POC. Telephone Encounter - Mino Love RN - 12/22/2017 8:59 AM EST Please let patient know about vitamin D deficiency (21). ? Start cholecalciferol 50,000 units once weekly for 8 weeks followed by OTC vitamin D3 2000 ??Units daily. Prescription sent. ? Thanks. ? ----- Message ----- ? From: Yan, Lab [facility] ? Sent: 12/15/2017 ?? 4:44 PM ? To: Prachi Garza MD Call placed to patient, no answer, message left with call back number. documented in this encounter Plan of Treatment Not on filedocumented as of this encounter Visit Diagnoses Not on filedocumented in this encounter Care Teams Document Advisor Relationship Specialty Start Date End Date Criss Acharya MD PCP - General Family Medicine 12/15/17 [address] [place] [address] documented as of this encounter
--- OUTSIDE RECORDS SUMMARY | 2022-07-17 00:48 | XMS_ITS | Clinical Summary ---
:1975 Author Organization [facility] [place] [address] Care Team Providers Name Role Phone Criss Acharya MD Primary Care Provider Allergies Active Allergy Reactions Severity Noted Date Comments Sulfa (Sulfonamide Antibiotics) Hives, Rash 8 Medications Medication Sig Dispensed Refills Start Date End Date Status PARoxetine (PAXIL) 10 Take 10 mg by 0 Active mg Tablet mouth every morning. cholecalciferol, Take 1 capsule by 8 capsule 0 12/21/2017 Active Vitamin D3, 50,000 mouth once a week. unit Capsule Additional Information Patient not taking. Reported on 03/09/2018 triamcinolone (KENALOG) 0.1 % as needed. 0 7 Active Cream ergocalciferol, vitamin D2, Take by mouth daily. 0 Active (VITAMIN D ORAL) naproxen (NAPROSYN) 500 mg Take 1 tablet by mouth 60 tablet 5 04/15/2018 Active Tablet 2 times daily (with meals). Social History Tobacco Use Types Packs/Day Years Used Date Never Smoker Smokeless Tobacco: Never Used Sex Assigned at Date Recorded Not on file Last Filed Vital Signs Vital Sign Reading [...] Mass Index 28.44 03/09/2018 8:20 AM EDT Plan of Treatment Health Maintenance Due Date Last Done Comments Covid-19 Vaccine (#1) 1978 HIV screen 1991 Hepatitis C Screening 1991 Tdap adult 1992 Tetanus vaccine 1992 HPV test 2003 PAP Smear 2003 Breast Cancer Share Decision Needed 2013 Colonoscopy 2018 Influenza (Flu) vaccine (1 of 1 - Influenza standard 07/02/2022 series) Care Teams Impact Hammer Operator Relationship Specialty Start Date End Date Criss Acharya MD PCP - General Family Medicine 12/15/17 [address] [place] [address]
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
--- OUTSIDE RECORDS SUMMARY | 2022-07-17 00:49 | XMS_ITS | Encounter Summary ---
:1975 Author Organization [facility] Address [address] [place] [address] Care Team Providers Name Role Phone Unavailable Primary Care Provider Unavailable Encounter Details Date Type Department Care Team Description 12/11/2010 Results Only [facility] CNM Laboratory Services - [address] [place] [address] [place] [address] [place] [address] [phone] Social History Tobacco Use Types Packs/Day Years Used Date Never Assessed Sex Assigned at Date Recorded Not on file documented as of this encounter Plan of Treatment Not on filedocumented as of this encounter Procedures Procedure Name Priority Date/Time Associated Diagnosis Comme [facility] CYTOPATHOLOGY Routine 12/11/2010 0:00 EST Results for this procedure are i n the results section . documented in this encounter Results CYTOPATHOLOGY (12/11/2010 0:00 EST) Pathology Report: CYTOPATHOLOGY REPORT ? [facility] ? LAB Reports generated via TagArray interface contain original data; ? however they are lacking the format of the original report. ? Caution should be taken when reading/interpreting unformatted reports. ? Name: ? KAREN SEGOVIA ? Accession #: ? [id number] ? : ? 1975 (Age: 34) ??F ?Collect Date: ? 12/11/2010 ? Location: ? [facility] ? Receive Date: ? 12/12/2010 ? Provider: ?ANEA LELON G CNM ? Copy to: ? Specimen/Source: ? Pap Test, Cervix/Endocervix, ThinPrep Imaging System ? with manual evaluation ? Last Menstrual Period: ? Hormonal/Contraceptive Statu s: ? Intrauterine device: Mirena ? Previous Gynecologic Patholo gy: ? ASC-US: 07/04 ? HPV: + 07/04 ? Treatment History: ? Colposcopy: 08/04 ? LEEP: 1999 ? Laser therapy ? Other: ? Additional clinical informat ion: Paps neg. since ? SPECIMEN ADEQUACY ? Satisfactory for Eval uation ? - transformation zone compon ent present ? GENERAL CATEGORIZATION ? Negative for Intraepi thelial Lesion or Malignancy ? Document reviewed and electr onically signed by: ? Lydia Blackwood, CT(ASCP) ? Report Date: ??02/15/ 2011 14:10 ? End of Report ? Specimen Performing Organization Address City/State/ZIP Code Phon e Number [facility] [address] [place] [address] SERVICES [facility] [address] [place] [address] documented in this encounter Visit Diagnoses Not on filedocumented in this encounter
--- OUTSIDE RECORDS SUMMARY | 2022-07-17 00:49 | XMS_ITS | Encounter Summary ---
:1975 Author Organization [facility] [place] [facility] Address [address] [place] [address] Care Team Providers Name Role Phone Unknown, Provider Primary Care Provider Encounter Details Date Type Department Care Team Description 01/22/2016 Results Only [facility] Carole Johnson MD [phone] [facility] [place] [address] (Wo rk) Social History Tobacco Use Types Packs/Day Years Used Date Never Assessed Sex Assigned at Date Recorded Not on file documented as of this encounter Plan of Treatment Not on filedocumented as of this encounter Procedures Procedure Name Priority Date/Time Associated Diagnosis Comme nts PAP TEST- RESULT Routine 01/22/2016 0:00 EDT Resu lts for this ONLY procedure are i n the results section. documented in this encounter Results PAP TEST- RESULT ONLY (01/22/2016 0:00 EDT) Pathology Report: CYTOPATHOLOGY REPORT [facility] Reports generated via electronic interface contain ron ginal data; SERVICES however they are lacking the format of the original re port. Caution should be taken when reading/interpreting unfo rmatted reports. Name: ? KAREN SEGOVIA ? Accession #: ? [id number] ? : ? 1975 (Age: [age]) ??F ?Collect Date: ? 01/22/2016 ? Location: ? [facility] ? Receive Date: ? 01/23/20 16 ? Provider: CAROLE KWONG MD Copy to: CHAIM HENDRIX MD ? Final Report SPECIMEN ADEQUACY ? Satisfactory for Evaluation - transformation zone component present GENERAL CATEGORIZATION ? Negative for Intraepithelial Lesion or Malignan cy ?? Hormonal/Contraceptive status: Intrauterine device: mi jaziel Specimen/Source: ??Pap Test, Cervix/Endocervix, ThinPr ep Imaging System with manual evaluation Document reviewed and electronically signed by: ? MILAGROS Park(ASCP) ? Report ??Date: 01/29/2016 08:55 HPV with Pap Test ? Date Ordered: ? 01/29/2016 ? Status: ?? Signed Out ?Date Complete: ? 01/31/2016 ? By: ??Sys tem Interface ? Date Reported: ? 01/31/2016 ? Interpretation RESULT: Negative for HPV. No E6 or E7 mRNA is detected from HPV types 16,18,31,3 3,35, 39,45,51,52,56,58,59,66, and 68 by automotive product engineer media bethany amplification. Comments Document reviewed and electronically signed by: ? System Interface ? Report date: 01/31/2016 By the signature above, the attending physician certif ies that he/she has personally conducted a gross and/or microscopic examin ation of the described specimens and rendered or confirmed the above diagnosi s. End of Report Specimen Performing Organization Address City/State/ZIP Code Phon e Number [facility] [address] [place] [address] SERVICES documented in this encounter Visit Diagnoses Not on filedocumented in this encounter Care Teams Gyroscopic Instrument Tester Relationship Specialty Start Date End Date Unknown, Provider, PCP - General 09/18/15 documented as of this encounter
--- OUTSIDE RECORDS SUMMARY | 2022-07-17 00:49 | XMS_ITS | Encounter Summary ---
:1975 Author Organization [facility] Address [address] [place] [address] Care Team Providers Name Role Phone Unavailable Primary Care Provider Unavailable Encounter Details Date Type Department Care Team Description 11/09/2007 Results Only [facility] - Aliya De Jesus NP conversion [address] [place] [address] Social History Tobacco Use Types Packs/Day Years Used Date Never Assessed Sex Assigned at Date Recorded Not on file documented as of this encounter Plan of Treatment Not on filedocumented as of this encounter Procedures Procedure Name Priority Date/Time Associated Diagnosis Comme nts CYTOPATHOLOGY Routine 11/09/2007 0:00 EST Results for this procedure are i n the results section . documented in this encounter Results CYTOPATHOLOGY (11/09/2007 0:00 EST) Pathology Report: CYTOPATHOLOGY REPORT [facility] Reports generated via electronic interface contain ron ginal data; however they are lacking the format of the original re port. Caution should be taken when reading/interpreting unfo rmatted reports. Name: ? KAREN SEGOVIA ? Accession #: ? [id number] : ? 1975 (Age: 31) ??F ?Collect Date: ? 07/2008 Location: ? [facility] ? Receive Date : ? 11/10/2007 Provider: ?ALIYA HAUSER HANDLE BENDER Copy to: ? Specimen/Source: ? ThinPrep Pap Test, Cervix/Endocervix, processed on [employer] ThinPrep Imaging System, with manual evaluation Last Menstrual Period: ? 10/24/07 Hormonal/Contraceptive Status: ? Oral contraceptives Previous Gynecologic Pathology: ? ASC-US: 05/04 cannot R/O GABO HPV: + Treatment History: ? Colposcopy: 06/04 normal LEEP: 1998 Laser therapy Other: ? HPVA - HPV testing requested if ASC-US on the current ThinPrep Pap test. ? SPECIMEN ADEQUACY ? Satisfactory for Evaluation - transformation zone component present GENERAL CATEGORIZATION ? Negative for Intraepithelial Lesion or Malignan cy ? Document reviewed and electronically signed by: ? MILAGROS Galan(ASCP) ? Report Date: ??11/14/2007 11:19 End of Report Specimen Performing Organization Address City/State/ZIP Code Phon e Number [facility] [address] [place] [address] [facility] [address] [place] [address] documented in this encounter Visit Diagnoses Not on filedocumented in this encounter
--- OUTSIDE RECORDS SUMMARY | 2022-07-17 00:49 | XMS_ITS | Encounter Summary ---
:1975 Author Organization [facility] Address [address] [place] [address] Care Team Providers Name Role Phone Unknown, Provider Primary Care Provider Reason for Visit Reason Onset Date Comments New Patient Visit 09/07/2018 Encounter Details Date Type Department Care Team Description 09/07/2018 Telephone [facility] Sleep Unknown, Doctor New Patient Visit Program - [address] [address] Social History Tobacco Use Types Packs/Day Years Used Date Never Assessed Sex Assigned at Date Recorded Not on file documented as of this encounter Miscellaneous Notes Telephone Encounter - Madina Gaston - 09/07/2018 1919 EST Patient has exam in [facility] and no longer needs this apt. documented in this encounter Plan of Treatment Not on filedocumented as of this encounter Visit Diagnoses Not on filedocumented in this encounter Care Teams Development Engineer Relationship Specialty Start Date End Date Unknown, ProviderMD PCP - General 09/18/15 documented as of this encounter
--- OUTSIDE RECORDS SUMMARY | 2022-07-17 00:49 | XMS_ITS | Encounter Summary ---
:1975 Author Organization [facility] Address [address] [place] [address] Care Team Providers Name Role Phone Unavailable Primary Care Provider Unavailable Encounter Details Date Type Department Care Team Description 09/09/2004 Results Only [facility] - Arnold Montes De Oca MD Maple conversion [address] [facility] LUCY,PUSHPA [address] [place] [address] [place] [address] [phone] Social History Tobacco Use Types Packs/Day Years Used Date Never Assessed Sex Assigned at Date Recorded Not on file documented as of this encounter Plan of Treatment Not on filedocumented as of this encounter Procedures Procedure Name Priority Date/Time Associated Diagnosis Comme nts CYTOPATHOLOGY Routine 09/09/2004 0:00 EST Results for this procedure are i n the results section . documented in this encounter Results CYTOPATHOLOGY (09/09/2004 0:00 EST) Pathology Report: CYTOPATHOLOGY REPORT [facility] Reports generated via electronic interface contain ron ginal data; however they are lacking the format of the original re port. Caution should be taken when reading/interpreting unfo rmatted reports. Name: ? KAREN SEGOVIA ? Accession #: ? [id number] : ? 1975 (Age: 28) ??F ?Collect Date: ? 07/2004 Location: ? [facility] ? Receive Date : ? 09/11/2004 Provider: ?JHON MONTES DE OCA MD Copy to: ? Specimen/Source: ?ThinPrep Pap Test, Source Not Provided Last Menstrual Period: ? 07/06/04 Menstrual/ Status: ? Previous Gynecologic Pathology: ? ASC-US: R/o LSIL 05/04 HPV: + 05/04 Treatment History: ? LEEP: 1998 Laser therapy: 1998 Colposcopy: 06/04 normal ? SPECIMEN ADEQUACY ? Satisfactory for Evaluation - transformation zone component present GENERAL CATEGORIZATION ? Negative for Intraepithelial Lesion or Malignan cy ? Document reviewed and electronically signed by: ? MILAGROS Marrero(ASCP) ? Report Date: ??09/17/2004 15:38 End of Report Specimen Performing Organization Address City/State/ZIP Code Phon e Number [facility] [address] [place] [address] [facility] [address] [place] [address] documented in this encounter Visit Diagnoses Not on filedocumented in this encounter
--- OUTSIDE RECORDS SUMMARY | 2022-07-17 00:49 | XMS_ITS | Encounter Summary ---
:1975 Author Organization [facility] Address [address] [place] [address] Care Team Providers Name Role Phone Unavailable Primary Care Provider Unavailable Encounter Details Date Type Department Care Team Description 12/15/2011 Results Only [facility] Edgardo Valentine, INSIDE SALES MANAGER Laboratory Services - [address] [place] [address] [address] [place] [address] [phone] Social History Tobacco Use Types Packs/Day Years Used Date Never Assessed Sex Assigned at Date Recorded Not on file documented as of this encounter Plan of Treatment Not on filedocumented as of this encounter Procedures Procedure Name Priority Date/Time Associated Diagnosis Comme nts PAP TEST- RESULT Routine 12/15/2011 0:00 EST Resu lts for this ONLY procedure are i n the results section. documented in this encounter Results PAP TEST- RESULT ONLY (12/15/2011 0:00 EST) Pathology Report: CYTOPATHOLOGY REPORT [facility] Reports generated via electronic interface contain ron ginal data; however they are lacking the format of the original re port. Caution should be taken when reading/interpreting unfo rmatted reports. Name: ? KAREN SEGOVIA ? Accession #: ? [id number] : ? 1975 (Age: 35) ??F ?Collect Date: ? 12/02 Location: ? [facility] ? Receive Date : ? 12/16/2011 Provider: ?ANURAG VALENTINE INSIDE SALES MANAGER Copy to: ?CHAIM HENDRIX MD ? Specimen/Source: ? Pap Test, Cervix/Endocervix, ThinPrep Imaging System with manual evaluation Last Menstrual Period: ? Hormonal/Contraceptive Status: ? Intrauterine device: Pt. has Mirena Previous Gynecologic Pathology: ? ASC-US: R/o LSIL 2003 HPV: + 2003 Treatment History: ? LEEP: 1998 Laser therapy Other: ? Additional clinical information: Normal paps since 200 4 ? SPECIMEN ADEQUACY ? Satisfactory for Evaluation - transformation zone component present GENERAL CATEGORIZATION ? Negative for Intraepithelial Lesion or Malignan cy INTERPRETATION ? Reactive cellular kamron nges associated with inflammation present (includes repair). ? Document reviewed and electronically signed by: ? FREDDY HECK [facility] ? Report Date: ??12/23/2011 18:25 End of Report Specimen Performing Organization Address City/State/ZIP Code Phon e Number [facility] [address] [place] [address] [facility] [address] [place] [address] documented in this encounter Visit Diagnoses Not on filedocumented in this encounter
--- OUTSIDE RECORDS SUMMARY | 2022-07-17 00:49 | XMS_ITS | Encounter Summary ---
:1975 Author Organization [facility] Address [address] [place] [address] Care Team Providers Name Role Phone Unavailable Primary Care Provider Unavailable Encounter Details Date Type Department Care Team Description 12/21/2012 Results Only [facility] Aliya Adames NP Laboratory Services - [address] [address] Social History Tobacco Use Types Packs/Day Years Used Date Never Assessed Sex Assigned at Date Recorded Not on file documented as of this encounter Plan of Treatment Not on filedocumented as of this encounter Procedures Procedure Name Priority Date/Time Associated Diagnosis Comme nts PAP TEST- RESULT Routine 12/21/2012 0:00 EST Resu lts for this ONLY procedure are i n the results section. documented in this encounter Results PAP TEST- RESULT ONLY (12/21/2012 0:00 EST) Pathology Report: CYTOPATHOLOGY REPORT [facility] Reports generated via electronic interface contain ron ginal data; however they are lacking the format of the original re port. Caution should be taken when reading/interpreting unfo rmatted reports. Name: ? KAREN SEGOVIA ? Accession #: ? [id number] ? : ? 1975 (Age: 36) ??F ?Collect Da te: ? 12/21/2012 ? Location: ? [facility] ? Receive Date: ? 013 ? Provider: ALIYA [facility] Copy to: CHAIM HENDRIX MD ? Final Report SPECIMEN ADEQUACY ? Satisfactory for Evaluation - transformation zone component present GENERAL CATEGORIZATION ? Negative for Intraepithelial Lesion or Malignan cy ?? Last Menstrual Period: 2008 Hormonal/Contraceptive status: Intrauterine device: mi jaziel Previous Gynecologic Pathology: HPV: + 2003, paps norm al since Treatment History: LEEP: 1998 Other: Additional clinical information: ? Dx as well a s ?LSIL Specimen/Source: ??Pap Test, Cervix/Endocervix, ThinPr ep Imaging System with manual evaluation Document reviewed and electronically signed by: ? Airam Falk, CT(ASCP) ? Report ??Date: 12/26/2012 15:02 HPV with Pap Test ? Date Ordered: ? 12/26/2012 ? Status: ?? Signed Out ?Date Complete: ? 2012 ? By: ??S ystem Interface ? Date Reported: ? 2012 ? Interpretation RESULT: Negative for HPV. No E6 or E7 mRNA is detected from HPV types 16,18,31,3 3,35, 39,45,51,52,56,58,59,66, and 68 by boil off machine operator cloth media bethany amplification. Comments Document reviewed and electronically signed by: ? System Interface ? Report date: 2012 By the signature above, the attending physician certif ies that he/she has personally conducted a gross and/or microscopic examin ation of the described specimens and rendered or confirmed the above diagnosi s. End of Report Specimen Performing Organization Address City/State/ZIP Code Phon e Number [facility] [address] [place] [address] [facility] [address] [place] [address] documented in this encounter Visit Diagnoses Not on filedocumented in this encounter
--- OUTSIDE RECORDS SUMMARY | 2022-07-17 00:49 | XMS_ITS | Encounter Summary ---
:1975 Author Organization [facility] Address [address] [place] [address] Care Team Providers Name Role Phone Unavailable Primary Care Provider Unavailable Encounter Details Date Type Department Care Team Description 10/13/2006 Results Only [facility] - David Gamez CNM conversion [address] [place] [address] [address] [address] [phone] Social History Tobacco Use Types Packs/Day Years Used Date Never Assessed Sex Assigned at Date Recorded Not on file documented as of this encounter Plan of Treatment Not on filedocumented as of this encounter Procedures Procedure Name Priority Date/Time Associated Diagnosis Comme nts CYTOPATHOLOGY Routine 10/13/2006 0:00 EST Results for this procedure are i n the results section . documented in this encounter Results CYTOPATHOLOGY (10/13/2006 0:00 EST) Pathology Report: CYTOPATHOLOGY REPORT [facility] Reports generated via electronic interface contain ron ginal data; however they are lacking the format of the original re port. Caution should be taken when reading/interpreting unfo rmatted reports. Name: ? KAREN SEGOVIA ? Accession #: ? [id number] : ? 1975 (Age: 30) ??F ?Collect Date: ? 10/01 Location: ? [facility] ? Receive Date : ? 10/13/2006 Provider: ?DAVID BALLARD CNM Copy to: ? Specimen/Source: ? ThinPrep Pap Test, Cervix/Endocervix, processed on [employer] ThinPrep Imaging System, with manual evaluation Last Menstrual Period: ? 09/21/06 Hormonal/Contraceptive Status: ? Oral contraceptives Previous Gynecologic Pathology: ? ASC-US: Cannot R/o GABO 05/04 HPV: + Treatment History: ? Colposcopy: normal 06/04 LEEP: 1998 Laser therapy: 1998 Other: ? HPVA - HPV testing requested if ASC-US on the current ThinPrep Pap test. ? SPECIMEN ADEQUACY ? Satisfactory for Evaluation - transformation zone component present GENERAL CATEGORIZATION ? Negative for Intraepithelial Lesion or Malignan cy ? Document reviewed and electronically signed by: ? MILAGROS Galan(ASCP) ? Report Date: ??10/20/2006 13:39 End of Report Specimen Performing Organization Address City/State/ZIP Code Phon e Number [facility] [address] [place] [address] [facility] [address] [place] [address] documented in this encounter Visit Diagnoses Not on filedocumented in this encounter
--- OUTSIDE RECORDS SUMMARY | 2022-07-17 00:49 | XMS_ITS | Encounter Summary ---
:1975 Author Organization [facility] Address [address] [place] [address] Care Team Providers Name Role Phone Unavailable Primary Care Provider Unavailable Encounter Details Date Type Department Care Team Description 10/07/[address] [facility] - Selma Waters CNM [facility] [address] [place] [phone] Social History Tobacco Use Types Packs/Day Years Used Date Never Assessed Sex Assigned at Date Recorded Not on file documented as of this encounter Plan of Treatment Not on filedocumented as of this encounter Procedures Procedure Name Priority Date/Time Associated Diagnosis Comme nts CYTOPATHOLOGY Routine 10/07/2005 0:00 EST Results for this procedure are i n the results section . documented in this encounter Results CYTOPATHOLOGY (10/07/2005 0:00 EST) Pathology Report: CYTOPATHOLOGY REPORT [facility] Reports generated via electronic interface contain ron ginal data; however they are lacking the format of the original re port. Caution should be taken when reading/interpreting unfo rmatted reports. Name: ? KAREN SEGOVIA ? Accession #: ? [id number] : ? 1975 (Age: 29) ??F ?Collect Date: ? 05/2005 Location: ? [facility] ? Receive Date : ? 10/08/2005 Provider: ?SELMA MONTEIRO [facility] Copy to: ? Specimen/Source: ? ThinPrep Pap Test, Cervix/Endocervix, processed on [email or web address] ThinPrep Imaging System, with manual evaluation Last Menstrual Period: ? 07/05 Hormonal/Contraceptive Status: ? Oral contraceptives Previous Gynecologic Pathology: ? ASC-US: R/o GABO 05/04 HPV: + 05/04 Treatment History: ? Colposcopy: normal 06/04 LEEP: 1998 Laser therapy: 1998 Other: ? Additional clinical information: 09/04 pap neg., del. 04/05 HPVA - HPV testing requested if ASC-US on the current ThinPrep Pap test. ? SPECIMEN ADEQUACY ? Satisfactory for Evaluation - transformation zone component present GENERAL CATEGORIZATION ? Negative for Intraepithelial Lesion or Malignan cy INTERPRETATION ? Reactive cellular kamron nges associated with inflammation present (includes repair). ? Document reviewed and electronically signed by: ? SIVA OAKES MD ? Report Date: ??10/13/2005 12:51 End of Report Specimen Performing Organization Address City/State/ZIP Code Phon e Number [facility] [address] [place] [address] [facility] [address] [place] [address] documented in this encounter Visit Diagnoses Not on filedocumented in this encounter
--- OUTSIDE RECORDS SUMMARY | 2022-07-17 00:49 | XMS_ITS | Encounter Summary ---
:1975 Author Organization [facility] Address [address] [place] [address] Care Team Providers Name Role Phone Unknown, Provider Primary Care Provider Encounter Details Date Type Department Care Team Description 09/09/2004 Hospital Encounter [facility] - Vanna Montes De Oca MD Other [address] [facility] [id number] [place] [phone] (Wo rk) Social History Tobacco Use Types Packs/Day Years Used Date Never Assessed Sex Assigned at Date Recorded Not on file documented as of this encounter Plan of Treatment Pending Results Name Type Priority Associated Diagnoses Date/Ti me CYTOPATHOLOGY Pathology Routine 12/05/2009 0:0 0 EST CYTOPATHOLOGY Pathology Routine 12/05/2009 0:0 0 EST Scheduled Orders Name Type Priority Associated Diagnoses Order S chedule CYTOPATHOLOGY Pathology Routine For medication s that can be administered at any time during the hospitaliza tion for visit such as immuniz ations. for 1 Occurrences sta rting 12/06/2009 CYTOPATHOLOGY Pathology Routine For medication s that can be administered at any time during the hospitaliza tion for visit such as immuniz ations. for 1 Occurrences sta rting 12/06/2009 documented as of this encounter Procedures Procedure Name Priority Date/Time Associated Diagnosis Comme nts CYTOPATHOLOGY Routine 12/05/2009 0:00 EST Results for this procedure are i n the results section . documented in this encounter Results CYTOPATHOLOGY (12/05/2009 0:00 EST) Pathology Report: CYTOPATHOLOGY REPORT ? [facility] Reports generated via electr onic interface contain original data; ? however they are lacking the format of the original report. ? Caution should be taken when reading/interpreting unformatted reports. ? Name: ? KAREN SEGOVIA ? Accession #: ? [id number] ? : ? 1975 (Age: 33) ??F ?Collect Date: ? 12/05/2009 ? Location: ? [facility] ? Receive Date: ? 12/06/2009 ? Provider: ?ANURAG HAYG OOD MANAGER FUND ? Copy to: ? Specimen/Source: ? Pap Test, Cervix/Endocervix, ThinPrep Imaging System ? with manual evaluation ? Last Menstrual Period: ? 1/09 ? Hormonal/Contraceptive Statu s: ? Intrauterine device: mirena ? Previous Gynecologic Patholo gy: ? ASC-US: 2004 R/O LGSIL ? HPV: +, normal since ? Other: ? HPVA - HPV testing requested if ASC-US on the current ThinPrep Pap test. ? SPECIMEN ADEQUACY ? Satisfactory for Eval uation ? - transformation zone compon ent present ? GENERAL CATEGORIZATION ? Negative for Intraepi thelial Lesion or Malignancy ? Document reviewed and electr onically signed by: ? Lydia Diazg, CT(ASCP) ? Report Date: ??02/09/ 2010 11:16 ? End of Report ? Specimen Performing Organization Address City/State/ZIP Code Phon e Number [facility] [address] [place] [address] [facility] [address] [place] [address] documented in this encounter Visit Diagnoses Not on filedocumented in this encounter Care Teams Anesthesiologist Physician Relationship Specialty Start Date End Date Unknown, Provider, PCP - General 09/18/15 documented as of this encounter
--- NOTE | 2022-07-17 07:45 | DI.MAMMO_ITS ---
Exam(s) MG MAMMO DIAGNOSTIC UNI EXAM: MG MAMMO DIAGNOSTIC UNI -RIGHT CLINICAL HISTORY: 6 month follow up, r92.8,abnl mammo. TECHNIQUE: Both CC and MLO mammographic images of the right breast were obtained with 3D tomosynthes is technique and utilizing computer aided detection (CAD). COMPARISON: Prior mammograms were reviewed, the most recent being December 2021. Ultrasound of [facility] 2021 was also reviewed.. FINDINGS: There has been no significant change in the appearance and distribution of the fibroglandular tissue of the right breast. Previously described asymmetric density remains unchanged and benign appearance. There are no new sp iculated masses nor malignant-appearing microcalcification groups in the right breast and there is no new architectural distortion nor skin thickening-retraction. IMPRESSION: No radiographic evidence of malignancy in the right breast. Appropriate follow-up is to keep this patient on yearly mammogram schedule, this implying the next bi lateral mammogram would be December 2022, with earlier imaging if a self detected breast change is no bethany.. The patient was informed of the findings and follow-up recommendations prior to leaving the [facility]. BI-RADS Category 2 - Benign Findings Breast Density - Category B - Scattered areas of fibroglandular density Breast density Category C or D implies that the patient has dense breast tissue. Dense breast tissue can make it harder to find cancer on a mammogram. Dense breast tissue is also associated with an incr eased risk of breast cancer. This information about the result of the mammogram report was provided to the patient to raise their awareness. Use this report when you speak with the patient about their risks for breast cancer, which includes their family history. At that time, you may recommend additional screening tests (Ultrasoun d or MRI) as these tests may add significant information. A negative radiographic report should not delay biopsy if a dominant or clinically suspicious mass is present. Up to ten percent of cancers are not identified on mammography. A negative report may reinforce clinical impression. Adenosis and dense breasts may obscure an underlying neoplasm. False positive reports average 6 to 10%. Patient will receive a letter notifying them of these results.
== END ==
PROVIDERS: PCP Nurse Practitioner Family; Visit Provider Nurse Practitioner Family
DX: R92.8 Other abnormal and inconclusive findings on diagnostic imaging of breast (principal)
CPT/HCPCS: 77061; 77065; G0279

== ENCOUNTER 2022-07-22 12:06 | Outpatient (REF) | payer BC, SELFPAY ==
[2022-07-22 19:28] LABS: HCT 45.1 % (36.0-46.0); MCH 31.1 pg (27.0-33.0); MCHC 33.3 % (32.0-36.0); MCV 93 fL (80-95); MPV 11.2 fL (8.0-11.0); Platelet Count 307 10^3/uL (130-400); RBC 4.83 10^6/uL (3.93-5.22); RDW 11.8 % (11.7-14.6); RDW-SD 40.4 fL; WBC 6.36 10^3/uL (4.4-10.8)
[2022-07-22 19:51] LABS: ALT 22 U/L (14-59); AST 13 U/L (15-37); Albumin 4.5 g/dL (3.4-5.0); Alkaline Phosphatase 65 U/L (46-116); Anion Gap 6.1 mmol/L (3-11); BUN 14 mg/dL (7-18); Bilirubin, Total 0.7 mg/dL (0.2-1.0); CO2 31.9 mmol/L (21.0-32.0); CREATININE 0.7 mg/dL (0.55-1.02); Calcium 9.7 mg/dL (8.5-10.1); Chloride 102 mmol/L (98-107); Estimated GFR 106.62 (mL/min/1.73m2); Glucose 79 mg/dL (74-106); Potassium 5.1 mmol/L (3.5-5.1); Sodium 140 mmol/L (136-145); Total Protein 7.5 g/dL (6.4-8.2)
== END 2022-07-22 12:07 | disposition home or self-care (01) ==
LOC: NCHCN 12:06
PROVIDERS: PCP Nurse Practitioner Family; Visit Provider Nurse Practitioner Family
DX: Z00.00 Encounter for general adult medical examination without abnormal findings (principal)
CPT/HCPCS: 80053; 85027

== ENCOUNTER 2023-07-23 22:04 | Outpatient (REF) | payer OTHER, SELFPAY ==
[2023-07-23 22:09] LABS: HCT 46.3 % (36.0-46.0); HGB 15.4 g/dL (11.2-15.7); MCH 31.2 pg (27.0-33.0); MCHC 33.3 % (32.0-36.0); MCV 94 fL (80-95); MPV 10.8 fL (8.0-11.0); Platelet Count 336 10^3/uL (130-400); RBC 4.93 10^6/uL (3.93-5.22); RDW 11.9 % (11.7-14.6); RDW-SD 41.9 fL; WBC 7.05 10^3/uL (4.4-10.8)
[2023-07-23 22:40] LABS: ALT 23 U/L (14-59); AST 15 U/L (15-37); Albumin 4.4 g/dL (3.4-5.0); Alkaline Phosphatase 61 U/L (46-116); Anion Gap 9.1 mmol/L (3-11); BUN 12 mg/dL (7-18); Bilirubin, Total 0.6 mg/dL (0.2-1.0); CO2 29.9 mmol/L (21.0-32.0); CREATININE 0.7 mg/dL (0.55-1.02); Calcium 9.7 mg/dL (8.5-10.1); Calculated LDL 143 mg/dL (<100); Chloride 101 mmol/L (98-107); Cholesterol 236 mg/dL (<200); Estimated GFR 105.95 (mL/min/1.73m2); Glucose 92 mg/dL (74-106); HDL Cholesterol 78 mg/dL (40-60); Potassium 3.9 mmol/L (3.5-5.1); Sodium 140 mmol/L (136-145); Total Protein 7.7 g/dL (6.4-8.2); Triglyceride 78 mg/dL (<150)
== END 2023-07-23 22:05 | disposition home or self-care (01) ==
LOC: LBN 22:04
PROVIDERS: PCP Nurse Practitioner Family; Visit Provider Nurse Practitioner Family
DX: Z00.00 Encounter for general adult medical examination without abnormal findings (principal); Z13.220 Encounter for screening for lipoid disorders; Z13.0 Encounter for screening for diseases of the blood and blood-forming organs and certain disorders involving the immune mechanism; Z13.228 Encounter for screening for other metabolic disorders
CPT/HCPCS: 80053; 80061; 85027

== ENCOUNTER 2024-07-05 06:10 | Day surgery (SDC) | payer BC, SELFPAY ==
[2024-07-05 06:25] VITALS: BP 126/84; PULSE 67; RESP 16; TEMP 36.3; O2SAT 99
--- NOTE | 2024-07-05 06:35 | PDOC.DSDIS_ITS ---
Date of service: 07/05/24 Time of Service: 06:35 Discharge Plan Disposition Patient Disposition: Home Condition: Good Discharge Details Reason For Visit: R ECTR Attending Provider: Daniel Munoz Primary Care Provider: Lupe Gonzalez Home Meds and New Rx's Prescriptions: New acetaminophen 500 mg tablet 1,000 mg PO TID Qty: 90 0RF hydrocodone-acetaminophen 5-325 mg tablet 1 tab PO Q6H PRN (Reason: pain) Qty: 4 0RF ibuprofen 600 mg tablet 600 mg PO TID PRN (Reason: pain) Qty: 90 0RF Continued triamcinolone acetonide 0.1 % cream 1 applic topical BID Mirena 1 EACH intrauterine device 1 ea Intrauterine DIRECTED Patient Comments: 07/05/24: pt reports Mirena implanted 7 years ago. FS 07/05/24 diphenhydramine HCl [Benadryl] 25 MG capsule 50 mg PO PRN paroxetine HCl 20 mg tablet 20 mg PO DAILY Qty: 30 5RF Discontinued acetaminophen [Tylenol Extra Strength] 500 MG tablet 500 mg PO PRN Discharge Instructions Stand Alone Forms: Anesthesia Discharge Inst., Ambar Sweet (DSU) Referrals: Daniel Munoz MD [ [facility] STAFF PHYSICIAN] - 07/14/24 9:15 am Activity:: Activity as Tolerated Remove Dressings/Wound Care:: 48 hours Shower/Bathe:: 48 hours Diet:: As Tolerated Discharge Orders Discharge Orders: Discharge Order (Routine); Ordered 07/05/24 Ordered By: Oli Javier DS: Diagnosis Discharge Diagnosis (1) Right carpal tunnel syndrome: Status: Acute
[2024-07-05] MEDS: Lactated Ringers 1,000 ML 80 ML IV (06:47)
--- NOTE | 2024-07-05 07:02 | W.ANESPRE ---
General Info Date of Service Date Performed: 07/05/24 Height: 5 ft 1 in Weight: 85.3 kg Body Mass Index (BMI): 35.5 Surgical Procedure: Operation Date: 07/05/24 07:40 Proposed Procedure Side Surgeon p Wrist ECTR Right Daniel Munoz MD Actual Procedure Side Surgeon p Wrist ECTR Right Daniel Munoz MD Pre-Op Diagnosis Post-Op Diagnosis Right carpal tunnel syndrome Right carpal tunnel syndrome Meds Allergies and Home Medications Allergies Allergy/AdvReac Type Severity Reaction Status Date / Time Sulfa (Sulfonamide Allergy Skin Rash Verified 07/05/24 06:35 Antibiotics) erythromycin base AdvReac Intermediate GI upset Verified 07/05/24 06:35 Home Medication ?Medication ?Instructions ?Recorded levonorgestrel 21 mcg/24 hr (up to 1 ea intrauterine DIRECTED 01/03/14 8 years) 52 mg intrauterine device (Mirena) diphenhydramine HCl 25 mg capsule 50 mg PO PRN 12/13/14 (Benadryl) paroxetine HCl 20 mg tablet 20 mg PO DAILY #30 tabs 03/06/19 triamcinolone acetonide 0.1 % 1 applic topical BID 06/19/21 topical cream acetaminophen 500 mg tablet 1,000 mg (2 x 500 mg) PO TID #90 07/05/24 tabs hydrocodone 5 mg-acetaminophen 325 1 tab PO Q6H PRN pain #4 tabs 07/05/24 mg tablet ibuprofen 600 mg tablet 600 mg PO TID PRN pain #90 tabs 07/05/24 Current Visit Medications: Current Medications Generic Name Dose Route Start Last Admin Trade Name Freq PRN Reason Stop Dose Admin Acetaminophen 650 mg 07/05/24 06:34 Acetaminophen 325 Mg Tab PO 08/04/24 06:33 Q4H PRN PRN Hydrocodone Bitart/Acetaminophen 0 tab 07/05/24 06:34 Hydrocodone 5/Acetaminophen 325 Tab PO 08/04/24 06:33 Q3H PRN PRN Pain Ringer's Solution 1,000 mls @ 80 mls/hr 07/05/24 06:00 07/05/24 06:47 IV 07/05/24 23:59 80 mls/hr INFUSION KENISHA Administration Cefazolin Sodium/Dextrose 2 gm in 50 mls @ 100 mls/hr 07/05/24 06:00 Ancef Duplex IVPB 07/05/24 23:59 PREOP KENISHA IV Miscellaneous Supplies 1 each 07/05/24 06:00 Iv Access IV 07/05/24 23:59 DIRECTED KENISHA Sodium Chloride 0 ml 07/05/24 06:00 Normal Saline Flush 10 Ml Syr IV 07/05/24 23:59 PRN PRN Sodium Chloride 0 ml 07/05/24 06:00 Normal Saline 10 Ml Vial IJ 07/05/24 23:59 DIRECTED PRN Sterile Water 0 ml 07/05/24 06:00 Water,Injection,Sterile 10 Ml Vial IJ 07/05/24 23:59 DIRECTED PRN PFSH Active Problems Active Problems: Problem Status Onset Code Right carpal tunnel syndrome Acute G56.01 Chronic streptococcal tonsillitis Acute J35.01, J03.00 Eczema Acute L30.9 Arthralgia Acute M25.50 Pharyngitis Acute J02.9 IUD surveillance Acute 06/05/20 Z30.431 Medical History Medical History Hemorrhoids Headache Genuine stress incontinence, female Vitamin D deficiency disease Fibromyalgia syndrome (11/06/17) dx by rheumatolgy Center [facility] [place] Depression Anxiety controlled with Paxil Surgical History Surgical History Hx of tonsillectomy 10/13/2021 Hx of LASIK Right knee meniscus tear repair Open Carpal Tunnel release (12/25/14) L hand. Left knee lateral release Cervical Procedure 1998 [facility] Tobacco Smoking/Tobacco Use Status: Former Tobacco Use Alcohol Alcohol Intake: current Alcohol intake frequency: 0-2 drinks per day Alcohol type: other Substance Use Substance use: Never Substance use type: does not use Prental History History 3 Para 2 Hx # Term Pregnancies Multiple births Hx # Pregnancies Ectopic pregnancies AB induced Hx Number of Living Children AB spontaneous Vital Signs and Lab Results Vital Signs Most Recent Vital Signs in EMR: Most Recent Vital Signs Temp Pulse Resp BP Pulse Ox 36.3 C L 67 16 126/84 99 07/05/24 06:25 07/05/24 06:25 07/05/24 06:25 07/05/24 06:25 07/05/24 06:25 Point of Care Results Point of Care Results: POC- Test(urine) Negative 07/05/24 06:57 Lab Results Blood Type / Crossmatch: No Data to Display Complete Blood Count: No Data to Display Complete Metabolic Panel: No Data to Display Liver Function Panel: No Data to Display Coagulation Panel: No Data to Display Cardiac Panel: No Data to Display Arterial Blood Gas: No Data to Display Venous Blood Gas: No Data to Display Pancreas Panel: No Data to Display Thyroid Panel: No Data to Display Infectious Disease: No Data to Display Blood Cultures: No Data to Display Toxicology Panel: No Data to Display Panel: No Data to Display Anesthesia Assessment and Plan Anesthesia History Personal History: No History of Anesthesia Complications Family History: Family History Unknown and Other Exercise Tolerance Exercise Tolerance: Metabolic Equivalents>4 Pertinent Negatives Pertinent Negatives: No Symptoms of GERD, No Major Cardiovascular Symptoms or Complaints and No Major Pulmonary Symptoms or Complaints Cardiac & Pulmonary Exam Cardiac Exam: Normal S1/S2 Heart Sounds Pulmonary Exam: Clear Bilateral Breath Sounds Implantable Cardiac Device Does patient have a Pacemaker or an ICD?: No Airway Exam Known Difficult Airway: No Mallampati Class: 1 Mouth Opening: Normal (> 3cm) Thyromental Distance: Greater than 3 cm Neck Range of Motion: Full ROM Neck Circumference: Normal Teeth Condition: Normal Dentition ASA Classification ASA Score: ASA 2 Emergency Case?: No NPO Status NPO Status: NPO Clears >2 hours, Solids >8 hours Status Status: Negative HCG Anesthesia Plan Resuscitation Status: Full Code Anesthesia Technique: General Anesthesia Airway Planned: Natural Airway Monitors Used: Standard Monitors
[2024-07-05 07:04] VITALS: BMI 35.5
[2024-07-05] MEDS: ceFAZolin 2 GM/50 ML BAG IVPB (07:22)
[2024-07-05] MEDS: Lidocaine 1% Multi-Dose W/EPI 1/100,000 50 ML VIAL (07:34)
[2024-07-05 07:42] VITALS: BP 128/75; PULSE 74; RESP 16; TEMP 36.2; O2SAT 95
[2024-07-05 08:06] VITALS: BP 136/84; PULSE 74; RESP 16; TEMP 36.3; O2SAT 98
--- NOTE | 2024-07-05 08:06 | W.ANESPOSTOP ---
Postoperative Evaluation Date, Time and Location Date Performed: 07/05/24 Time Performed: 08:01 Patient Location: Day Surgery Unit Vital Signs Most Recent Imported Vital Signs: Most Recent Vital Signs Temp Pulse Resp BP Pulse Ox 36.2 C L 74 16 128/75 95 07/05/24 07:42 07/05/24 07:42 07/05/24 07:42 07/05/24 07:42 07/05/24 07:42 Pain Score Most Recent Pain Score: Most Recent Pain Score Pain Level 0 07/05/24 07:42 Assessment Mental Status: Awake (Alert & Oriented to Patient Baseline) Airway and Respiratory Function: Patent airway with normal (patient baseline) respiratory exam Cardiovascular Function: Hemodynamically Stable Hydration Status: Adequately Hydrated Nausea & Vomiting: No Nausea or Vomiting Pain: Pt. Denies Any Pain Peripheral Nerve Block: Patient did not receive a nerve block
--- NOTE | 2024-07-05 21:20 | ROE_ITS ---
Date of service: 07/05/24 Time of Service: 07:30 Operative Note Operative Note DATE OF PROCEDURE: 07/06/24 PRE-OP DIAGNOSIS: Right Carpal Tunnel Syndrome POST-OP DIAGNOSIS: same PROCEDURE: Right Endoscopic Carpal Tunnel Release SURGEON: Daniel Munoz ANESTHESIA TYPE: General:No Airway Refer to Anesthesia Record ESTIMATED BLOOD LOSS: 0 PATHOLOGY: none sent TOURNIQUET TIME: 4 COMPLICATIONS: None Patient was transported to: same day Patient's condition: stable Indications: I have seen Karen in clinic for symptoms of carpal tunnel syndrome. The numbness, tingling, and pain limited function. Clinical exam findings with nerve conduction tests confirmed the diagnosis of carpal tunnel syndrome. Nonoperative measures such as bracing, time, activity modifications had been tried but disability and pain persisted. I discussed carpal tunnel release with the patient. I reviewed the risks of the procedure to include, but not limited to, bleeding, infection, pain, stiffness, incomplete release, damage to nerves or vessels, persistent numbness, recurrence. Despite these risks, the patient elected to proceed. Findings: There was tightened carpal tunnel. This was dilated and released successfully with the endoscopic with increased space within the tunnel. The antebrachial fascia was released proximally freeing the median nerve at the wrist. Procedure Description: Karen was greeted in the preoperative holding area where the correct side was identified and marked. The consent was reviewed with the patient and signed. The history and physical was updated. All questions were answered. She was taken back to the operating room. The patient was placed into the supine position on the operating room table with the right arm on an arm board. A nonsterile tourniquet was placed high onto the arm. All bony prominences were well padded. Prophylactic antibiotics in the form of Cefazolin were administered. The right arm was then prepped with Chloraprep and draped in a standard fashion with stockinette and extremity drape. A timeout to confirm correct identity, side and site, procedure, allergies, anesthesia, and medical concerns was performed. The surgical site was marked in the volar wrist creases in line with the radial border of the fourth ray. This area was anesthetized with approximately 6cc of 1% Lidocaine. The limb was then exsanguinated with an Esmarch. The skin was incised with a 15 blade, approximately 1cm. The skin only was cut and the deeper tissue was dissected bluntly with a tenotomy scissor, avoiding passing nerve and venous structures. The fascia was penetrated and opened bluntly. A two-prong skin hook was placed under this proximal fascial edge. A series of hamate finders were used to identify and dilate the carpal tunnel. Synovial elevator was used to free synovial attachments to the underside of the transverse carpal ligament. My thumb was kept in the palm to syed the distal extent of the carpal tunnel and correctly position the hand. The Microaire endoscope was inserted without difficulty and without resistance. Excellent visualization showed horizontally running fibers of the transverse carpal ligament (TCL). The distal extent of the TCL was visualized and the end of the scope palpated with the thumb. The blade was elevated and withdrawn from distal to proximal. The TCL was split into two flaps. The endoscope was reinserted to confirm complete release and any remnant ligament was incised. The scope was withdrawn and the proximal aspect of the carpal tunnel was grossly inspected and appeared release with the median nerve visible. The antebrachial fascia at the level of the wrist was then freed from the overlying skin and then the underlying median nerve with blunt dissection. This was transected longitudinally for about 3cm proximal to the wrist incision. The wound was then irrigated with easy flow of irrigant distally and proximally. The incision was closed with a single 4-0 Nylon suture. The wound was dressed w ith Xeroform, Gauze, Kerlix and Romain. The tourniquet was deflated with the initial dressing and held with some pressure. Blood flow returned easily to all digits with capillary refill less than 2 seconds. The patient tolerated the procedure well and was returned to the Same Day Surgery area in a stable condition suffering no known complication.
== END 2024-07-05 08:40 | disposition home or self-care (01) ==
PROVIDERS: PCP Nurse Practitioner Family; Visit Provider Student in an Organized Health Care Education/Training Program
PROC: 01N54ZZ Release Median Nerve, Percutaneous Endoscopic Approach (ICD-10-PCS; CPT 29848; principal; 2024-07-05 07:30)
DX: G56.01 Carpal tunnel syndrome, right upper limb (principal)
CPT/HCPCS: 29848; 81025; J0690; J1100; J1885; J2001; J2004; J2250; J2405; J2704; J3010

== ENCOUNTER 2024-09-20 08:44 | Outpatient (REF) | payer BC, SELFPAY ==
--- NOTE | 2024-09-20 08:20 | PAPFT_PTH ---
PATIENT: Karen Cody LOC: [facility] U#:[id number] AGE/SX: 48/F ROOM: RE09/20/[address]: Brandy Dougalss NP : 1975 BED: DIS: 09/20/2024 SPEC #: [id number] RECD: 09/20/24 13:35 STATUS: ARTURO REQ #: [id number] JANICE: 09/20/24 08:[address]: Brandy Douglass NP [facility] RECD BY: Sangeetha Rao ENTERED: 09/20/24 13:35 SP TYPE: PAPFT OTHR DR: Lupe Gonzalez Tissues: 1 - CX/ENDOCX FOR PAP SMEARS Procedures: PAP THIN PREP/UVM Screening HPV DNA PROBE Comments: [id number] (HPV 16 & 18/45)
== END 2024-09-20 08:45 | disposition home or self-care (01) ==
LOC: LBN 08:44
PROVIDERS: PCP Nurse Practitioner Family; Visit Provider Nurse Practitioner Women's Health
DX: Z12.39 Encounter for other screening for malignant neoplasm of breast (principal); Z01.419 Encounter for gynecological examination (general) (routine) without abnormal findings; Z30.431 Encounter for routine checking of intrauterine contraceptive device; N39.3 Stress incontinence (female) (male); Z12.4 Encounter for screening for malignant neoplasm of cervix; Z12.31 Encounter for screening mammogram for malignant neoplasm of breast
CPT/HCPCS: 88142; 87624

== ENCOUNTER 2024-09-20 15:56 | Outpatient (REF) | payer BC, SELFPAY ==
[2024-09-20 21:04] LABS: HCT 44.6 % (36.0-46.0); HGB 14.7 g/dL (11.2-15.7); MCH 30.9 pg (27.0-33.0); MCV 94 fL (80-95); MPV 10.8 fL (8.0-11.0); Platelet Count 325 10^3/uL (130-400); RBC 4.75 10^6/uL (3.93-5.22); RDW 11.7 % (11.7-14.6); RDW-SD 40.8 fL; WBC 6.68 10^3/uL (4.4-10.8)
[2024-09-20 21:15] LABS: ALT 31 U/L (14-59); AST 19 U/L (15-37); Albumin 4.7 g/dL (3.4-5.0); Alkaline Phosphatase 62 U/L (46-116); Anion Gap 11.8 mmol/L (3-11); BUN 9 mg/dL (7-18); Bilirubin, Total 0.79 mg/dL (0.2-1.0); CO2 28.2 mmol/L (21.0-32.0); CREATININE 0.8 mg/dL (0.55-1.02); Calculated LDL 153 mg/dL (<100); Chloride 103 mmol/L (98-107); Cholesterol 244 mg/dL (<200); Estimated GFR 89.71 (mL/min/1.73m2); Glucose 79 mg/dL (74-106); HDL Cholesterol 72 mg/dL (40-60); Potassium 3.9 mmol/L (3.5-5.1); Sodium 143 mmol/L (136-145); TSH (W/Ref FT4) 1.59 uIU/mL (0.36-3.74); Total Protein 7.8 g/dL (6.4-8.2); Triglyceride 97 mg/dL (<150)
== END 2024-09-20 15:57 | disposition home or self-care (01) ==
LOC: NCHCN 15:56
PROVIDERS: PCP Nurse Practitioner Family; Visit Provider Nurse Practitioner Family
DX: Z00.00 Encounter for general adult medical examination without abnormal findings (principal); R63.5 Abnormal weight gain
CPT/HCPCS: 80053; 80061; 85027; 84443

== ENCOUNTER 2024-09-25 01:24 | Outpatient (CLI) | payer BC, SELFPAY ==
--- NOTE | 2024-09-25 07:42 | DI.MAMMO_ITS ---
Exam(s) MAMMO SCREENING EXAM: MAMMO SCREENING CLINICAL HISTORY: screening TECHNIQUE: Bilateral full field digital CC and MLO mammographic images were obtained with 3D tomosyn thesis and utilizing computer aided detection (CAD). COMPARISON: Available for comparison. FINDINGS: Masses/Architectural Distortion: None seen. Microcalcifications: No suspicious pleomorphic-type are seen. Skin Thickening/Nipple Retraction: None. IMPRESSION: 1. No significant interval change with no specific features of malignancy noted. 2. Unless there is more urgent need, screening mammography is recommended, as per [place] [employer] guidelines. BI-RADS Category 1 - Negative Breast Density - Category B - Scattered areas of fibroglandular density Breast density category C or D implies that the patient has dense breast tissue. Dense breast tissue is very common and is not abnormal but dense breast tissue can make it harder to find cancer on a ma mmogram. Also, dense breast tissue may increase their breast cancer risk. This information about the result of the mammogram report was provided to the patient to raise their awareness. Use this report when you speak with the patient about their risks for breast cancer, which includes their family hist ory. At that time, you may recommend for more screening tests (Ultrasound or MRI) as they might be us eful based on their risk. A negative radiographic report should not delay biopsy if a dominant or clinically suspicious mass is present. Up to ten percent of cancers are not identified on mammography. A negative report may reinforce clinical impression. Adenosis and dense breasts may obscure an underlying neoplasm. False positive reports average 6 to 10%. Patient will receive a letter notifying them of these results.
== END 2024-09-25 01:44 ==
LOC: DI 01:25
PROVIDERS: PCP Nurse Practitioner Family; Visit Provider Nurse Practitioner Women's Health
DX: Z12.31 Encounter for screening mammogram for malignant neoplasm of breast (principal); R92.323 Mammographic fibroglandular density, bilateral breasts
CPT/HCPCS: 77063; 77067

== ENCOUNTER 2025-04-02 08:55 | Day surgery (SDC) | payer OTHER, SELFPAY ==
[2025-04-02 09:37] VITALS: BP 123/76; PULSE 80; RESP 17; TEMP 37.5; O2SAT 98
[2025-04-02] MEDS: Lactated Ringers 1,000 ML 80 ML IV (09:46)
--- NOTE | 2025-04-02 11:02 | W.SURGCON ---
Date of service: 04/02/25 Time of Service: 11:03 Assessment and Plan Assessment and plan (1) Encounter for screening colonoscopy: Status: Acute Assessment and plan: 49-year-old woman due for her for screening colonoscopy and no symptoms or increased risk factors. Overall plan: Colonoscopy History of Present Illness Narrative: Patient here for her for screening colonoscopy. No symptoms. No family history of colon cancer. No intra-abdominal surgical history. PFSH All Active Problems (Updated 04/02/25 @ 11:04 by Magnus Ford MD) Encounter for screening colonoscopy (Acute) Fibromyalgia syndrome (Acute 11/06/17) dx by rheumatolgy Center [facility] [place] Chronic streptococcal tonsillitis (Acute) Eczema (Acute) IUD surveillance (Acute 06/05/20) Medical History (Updated 04/02/25 @ 11:04 by Magnus Ford MD) Recent weight gain Pain in right wrist Elevated blood pressure reading without diagnosis of hypertension Hypercalcemia Hemorrhoids Headache Genuine stress incontinence, female Vitamin D deficiency disease Depression Anxiety controlled with Paxil Surgical History Right carpal tunnel syndrome S/P ECTR: 07/05/2024 Hx of tonsillectomy 10/13/2021 Hx of LASIK Right knee meniscus tear repair Open Carpal Tunnel release (12/25/14) L hand. Left knee lateral release Cervical Procedure 1998 [facility] Family History Mother , COPD at age 58. COPD (chronic obstructive pulmonary disease) Brain aneurysm Macular degeneration Paternal Grandmother Breast cancer Maternal Grandmother Family history of coronary artery disease Maternal Grandfather Stroke Alcohol use disorder RECOVERED Other Heart disease Social History Smoking/Tobacco Use Status: Former Tobacco Use Quit Date: 11/01/02 Tobacco: How many years used: 12 Smoking risk assessment performed?: Yes Alcohol Intake: current Alcohol Intake frequency: 0-2 drinks per day Alcohol type: other Drug use: Never Substance use type: does not use Housing: house Do you feel safe at home: Yes Do you feel safe in your relationship?: Yes Female Reproductive History Menstrual control method: progestin IUCD History History 3 Para 2 Hx # Term Pregnancies Multiple births Hx # Pregnancies Ectopic pregnancies AB induced Hx Number of Living Children AB spontaneous Exam Narrative Exam Narrative: Gen: Non-toxic, comfortable and interactive Neuro: Alert and oriented x3 Psych: Good mood and affect. Good insight and understanding into condition. Chest: Non-labored breathing, no wheezing, no visible shortness of breath. Heart: Regular Results Last Vital Signs Temp 99.5 F 04/02/25 09:37 Pulse 80 04/02/25 09:37 Resp 17 04/02/25 09:37 BP 123/76 04/02/25 09:37 Pulse Ox 98 04/02/25 09:37
--- NOTE | 2025-04-02 11:04 | W.PM.DSUDISC ---
Date of service: 04/02/25 Discharge Plan Disposition Patient Disposition: Home Condition: Good Discharge Details Attending Provider: Magnus Ford Primary Care Provider: Lupe Gonzalez Home Meds and New Rx's Prescriptions: No Action triamcinolone acetonide 0.1 % cream 1 applic topical BID bisacodyl [Dulcolax (bisacodyl)] 5 mg tablet,delayed release (DR/EC) 5 mg PO ONCE Qty: 4 0RF Rx Instructions: Take per colonoscopy instructions provided by ordering providers office polyethylene glycol 3350 17 gram/dose powder 17 g PO ONCE Qty: 238 0RF Rx Instructions: Take per colonoscopy instructions provided by ordering providers office Mirena 1 EACH intrauterine device 1 ea Intrauterine DIRECTED Patient Comments: 07/05/24: pt reports Mirena implanted 7 years ago. FS 07/05/24 diphenhydramine HCl [Benadryl] 25 MG capsule 50 mg PO PRN paroxetine HCl 20 mg tablet 20 mg PO DAILY Qty: 30 5RF Discharge Instructions Additional Instructions: FINDINGS: A small polyp was found and removed from your colon today. It is nothing to worry about. It will get tested and depending on those results your next colonoscopy could be recommended anywhere from 3 years to 10 years. We will call you with those results. Activity:: Activity as Tolerated Diet:: As Tolerated Discharge Orders Discharge Orders: Discharge Order (Routine); Ordered 04/02/25 Ordered By: Magnus Ford DS: Diagnosis Discharge Diagnosis (1) Encounter for screening colonoscopy: Status: Acute
--- NOTE | 2025-04-02 11:05 | W.COLOREPORT ---
Date of service: 04/02/25 Time of Service: 11:05 Colonoscopy Report Procedure Description: PROCEDURES PERFORMED: 1. Colonoscopy with Hot snare polypectomy x1 PREOPERATIVE DIAGNOSIS: Screening colonoscopy POSTOPERATIVE DIAGNOSIS: Colon polyps SURGEON: Ced Ford MD INDICATION FOR PROCEDURE: 49-year-old woman due for her for screening colonoscopy. No symptoms. No family history of concern. FINDINGS: Very long and redundant colon. Polyps: The sigmoid colon a flat, 3-5 mm sessile polyp was removed with hot snare technique. It could be hyperplastic No obvious diverticular disease. No hemorrhoid disease of significance. SURVEILLANCE interval/FOLLOW-UP: Pending path results of the polyp, 3-10-year follow-up. If hyperplastic or adenomatous then 7 to 10 years. If sessile serrated or villous histology then 3 years. SPECIMENS: Yes EBL: Minimal COMPLICATIONS: None QUALITY of prep: Excellent Procedure in detail: The patient gave written consent and was in agreement with the indications, the potential risks as well as the benefits of the procedure. They were taken to the endoscopy suite and laid in the left lateral decubitus position. A timeout was performed and anesthesia was administered which was tolerated well. I started the procedure. Digital rectal and visual examination was performed and grossly within normal limits. A well-lubricated flexible colonoscope was then introduced and passed without any notable difficulty all the way to the cecum identified by the ileocecal valve and the appendiceal orifice. The scope was then slowly withdrawn with the above-noted findings. The patient tolerated the procedure well and was taken to the PACU in hemodynamically stable condition.
--- NOTE | 2025-04-02 11:12 | W.ANESPRE ---
General Info Date of Service Date Performed: 04/02/25 Height: 5 ft 1 in Weight: 85 kg Body Mass Index (BMI): 35.4 Surgical Procedure: Operation Date: 04/02/25 10:50 Proposed Procedure Side Surgeon p Lizzette Ford MD Meds Allergies and Home Medications Allergies Allergy/AdvReac Type Severity Reaction Status Date / Time Sulfa (Sulfonamide Allergy Skin Rash Verified 04/02/25 09:40 Antibiotics) erythromycin base AdvReac Intermediate GI upset Verified 04/02/25 09:40 Home Medication ?Medication ?Instructions ?Recorded levonorgestrel 21 mcg/24 hr (up to 1 ea intrauterine DIRECTED 01/03/14 8 years) 52 mg intrauterine device (Mirena) diphenhydramine HCl 25 mg capsule 50 mg PO PRN 12/13/14 (Benadryl) paroxetine HCl 20 mg tablet 20 mg PO DAILY #30 tabs 03/06/19 triamcinolone acetonide 0.1 % 1 applic topical BID 06/19/21 topical cream bisacodyl 5 mg tablet,delayed 5 mg PO ONCE #4 tabs 02/01/25 release (Dulcolax (bisacodyl)) polyethylene glycol 3350 17 17 g PO ONCE #238 grams 02/01/25 gram/dose oral powder Current Visit Medications: Current Medications Generic Name Dose Route Start Last Admin Trade Name Freq PRN Reason Stop Dose Admin Ringer's Solution 1,000 mls @ 80 mls/hr 04/02/25 06:00 04/02/25 09:46 IV 04/02/25 23:59 80 mls/hr INFUSION KENISHA Administration IV Miscellaneous Supplies 1 each 04/02/25 06:00 Iv Access IV 04/02/25 23:59 DIRECTED KENISHA Sodium Chloride 0 ml 04/02/25 06:00 Normal Saline Flush 10 Ml Syr IV 04/02/25 23:59 PRN PRN Sodium Chloride 0 ml 04/02/25 06:00 Normal Saline 10 Ml Vial IJ 04/02/25 23:59 DIRECTED PRN Sterile Water 0 ml 04/02/25 06:00 Water,Injection,Sterile 10 Ml Vial IJ 04/02/25 23:59 DIRECTED PRN PFSH Active Problems Active Problems: Problem Status Onset Code Encounter for screening colonoscopy Acute Z12.11 Fibromyalgia syndrome Acute 11/06/17 Chronic streptococcal tonsillitis Acute J35.01, J03.00 Eczema Acute L30.9 IUD surveillance Acute 06/05/20 Z30.431 Medical History Medical History (Updated 04/02/25 @ 11:04 by Magnus Ford MD) Recent weight gain Pain in right wrist Elevated blood pressure reading without diagnosis of hypertension Hypercalcemia Hemorrhoids Headache Genuine stress incontinence, female Vitamin D deficiency disease Depression Anxiety controlled with Paxil Surgical History Surgical History Right carpal tunnel syndrome S/P ECTR: 07/05/2024 Hx of tonsillectomy 10/13/2021 Hx of LASIK Right knee meniscus tear repair Open Carpal Tunnel release (12/25/14) L hand. Left knee lateral release Cervical Procedure 1998 [facility] Tobacco Smoking/Tobacco Use Status: Former Tobacco Use Passive smoking exposure: No Alcohol Alcohol Intake: current Alcohol intake frequency: 0-2 drinks per day Alcohol type: other Substance Use Substance use: Never Substance use type: does not use Prental History History 3 Para 2 Hx # Term Pregnancies Multiple births Hx # Pregnancies Ectopic pregnancies AB induced Hx Number of Living Children AB spontaneous Vital Signs and Lab Results Vital Signs Most Recent Vital Signs in EMR: Most Recent Vital Signs Temp Pulse Resp BP Pulse Ox 37.5 C 80 17 123/76 98 04/02/25 09:37 04/02/25 09:37 04/02/25 09:37 04/02/25 09:37 04/02/25 09:37 Point of Care Results Point of Care Results: POC- Test(urine) Negative 04/02/25 09:37 Lab Results Blood Type / Crossmatch: No Data to Display Complete Blood Count: No Data to Display Complete Metabolic Panel: No Data to Display Liver Function Panel: No Data to Display Coagulation Panel: No Data to Display Cardiac Panel: No Data to Display Arterial Blood Gas: No Data to Display Venous Blood Gas: No Data to Display Pancreas Panel: No Data to Display Thyroid Panel: No Data to Display Infectious Disease: No Data to Display Blood Cultures: No Data to Display Toxicology Panel: No Data to Display Panel: No Data to Display Anesthesia Assessment and Plan Anesthesia History Personal History: No History of Anesthesia Complications Family History: No Family History of Anesthesia Complications and Other Exercise Tolerance Exercise Tolerance: Metabolic Equivalents>4 Pertinent Negatives Pertinent Negatives: No Symptoms of GERD Cardiac & Pulmonary Exam Cardiac Exam: Normal S1/S2 Heart Sounds Pulmonary Exam: Clear Bilateral Breath Sounds Implantable Cardiac Device Does patient have a Pacemaker or an ICD?: No Airway Exam Known Difficult Airway: No Mallampati Class: 1 Mouth Opening: Normal (> 3cm) Thyromental Distance: Greater than 3 cm Neck Range of Motion: Full ROM Neck Circumference: Normal Teeth Condition: Normal Dentition ASA Classification ASA Score: ASA 2 Emergency Case?: No NPO Status NPO Status: NPO Clears >2 hours, Solids >8 hours Status Status: Not Relevant due to Medical History Anesthesia Plan Resuscitation Status: Full Code Anesthesia Technique: General Anesthesia Airway Planned: Natural Airway Monitors Used: Standard Monitors
[2025-04-02 11:13] VITALS: BMI 35.4
--- NOTE | 2025-04-02 11:40 | BOWEL_PTH ---
PATIENT: Karen Cody LOC: [facility] U#:[id number] AGE/SX: 49/F ROOM: RE04/02/[address]: Magnus Ford : 1975 BED: DIS: 04/02/2025 SPEC #: [id number] RECD: 04/02/25 13:03 STATUS: ARTURO RE #: [id number] JANICE: 04/02/25 11:[address]: Magnus Ford DEPT: Surgical Specimen RECD BY: Sangeetha Rao ENTERED: 04/02/25 13:04 SP TYPE: Bowel OTHR DR: Lupe Gonzalez Tissues: 1 - BIOPSY BOWEL Procedures: GROSS AND MICRO LEVEL 4 Comments: [id number]
[2025-04-02 11:50] VITALS: BP 113/70; PULSE 71; RESP 17; TEMP 36; O2SAT 94
--- NOTE | 2025-04-02 12:01 | W.ANESPOSTOP ---
Postoperative Evaluation Date, Time and Location Date Performed: 04/02/25 Time Performed: 12:01 Patient Location: Day [facility] Unit Vital Signs Most Recent Imported Vital Signs: Most Recent Vital Signs Temp Pulse Resp BP Pulse Ox 37.5 C 80 17 123/76 98 04/02/25 09:37 04/02/25 09:37 04/02/25 09:37 04/02/25 09:37 04/02/25 09:37 Pain Score Most Recent Pain Score: Most Recent Pain Score Pain Level 0 04/02/25 09:37 Assessment Mental Status: Awake (Alert & Oriented to Patient Baseline) Airway and Respiratory Function: Patent airway with normal (patient baseline) respiratory exam Cardiovascular Function: Hemodynamically Stable Hydration Status: Adequately Hydrated Nausea & Vomiting: No Nausea or Vomiting Pain: Pt. Denies Any Pain Peripheral Nerve Block: Patient did not receive a nerve block
[2025-04-02 12:19] VITALS: BP 123/73; PULSE 77; RESP 16; TEMP 36.6; O2SAT 100
== END 2025-04-02 12:22 | disposition home or self-care (01) ==
PROVIDERS: PCP Nurse Practitioner Family; Visit Provider Student in an Organized Health Care Education/Training Program
PROC: 0DJD8ZZ Inspection of Lower Intestinal Tract, Via Natural or Artificial Opening Endoscopic (ICD-10-PCS; CPT 45378; principal; 2025-04-02 10:45)
DX: Z12.11 Encounter for screening for malignant neoplasm of colon (principal); K63.5 Polyp of colon
CPT/HCPCS: 45385; 81025; 88305; J2003; J2704

== ENCOUNTER → 2025-10-01 03:47 | Outpatient (CLI) | payer OTHER, SELFPAY ==
--- NOTE | 2025-10-01 07:45 | DI.MAMMO_ITS ---
Exam(s) MAMMO SCREENING EXAM: MAMMO SCREENING CLINICAL HISTORY: screening,z12.39. TECHNIQUE: Bilateral full field digital CC and MLO mammographic images were obtained with 3D tomosynthesis and utilizing computer aided detection (CAD). COMPARISON: Prior mammograms were reviewed. FINDINGS: There has been no significant change in the appearance and distribution of the fibroglandular tissue. There are no new spiculated masses nor malignant appearing microcalcification groups. There is no significant architectural distortion nor skin thickening-retraction. IMPRESSION: No radiographic evidence of malignancy. BI-RADS Category 1 - Negative Breast Density - Category B - There are scattered areas of fibroglandular density. Breast density Category C or D implies that the patient has dense breast tissue. Dense breast tissue can make it harder to find cancer on a mammogram. Dense breast tissue is also associated with an increased risk of breast cancer. This information about the result of the mammogram report was provided to the patient to raise their awareness. Use this report when you speak with the patient about their risks for breast cancer, which includes their family history. At that time, you may recommend additional screening tests (Ultrasound or MRI) as these tests may add significant information. A negative radiographic report should not delay biopsy if a dominant or clinically suspicious mass is present. Up to ten percent of cancers are not identified on mammography. A negative report may reinforce clinical impression. Adenosis and dense breasts may obscure an underlying neoplasm. False positive reports average 6 to 10%. Patient will receive a letter notifying them of these results.
== END ==
LOC: DI 03:47
PROVIDERS: PCP Nurse Practitioner Family; Visit Provider Nurse Practitioner Women's Health
DX: Z12.31 Encounter for screening mammogram for malignant neoplasm of breast (principal); R92.323 Mammographic fibroglandular density, bilateral breasts
CPT/HCPCS: 77063; 77067

== ENCOUNTER → 2025-10-01 10:50 | Outpatient (CLI) | payer OTHER, SELFPAY ==
--- NOTE | 2025-10-01 12:08 | DI.RAD_ITS ---
Exam(s) XR FOOT LT COMPLETE EXAM: XR FOOT LT COMPLETE CLINICAL HISTORY: LT FOOT PAIN, M79.672. TECHNIQUE: 2D digital imaging was performed. COMPARISON: No exams were available for comparison FINDINGS: 3 views No evidence of fracture or diastasis of the Lisfranc joint. Great toe metatarsophalangeal joint appears unremarkable. No pes planus. Tiny sesamoid bone noted on the medial aspect of the foot adjacent to the navicular tuberosity at the tibialis posterior insertion site. There is also an accessory ossicle os supranaviculare noted on the proximal dorsal aspect of the foot. Bone density normal. No osseous lesions. No erosions. No radiopaque foreign bodies. No inferior calcaneal spur. IMPRESSION: No acute osseous findings in the left foot. DATA REPOSITORY: RADIATION DOSE DELIVERED:
== END ==
PROVIDERS: PCP Nurse Practitioner Family; Visit Provider Nurse Practitioner Family
DX: M79.672 Pain in left foot (principal)
CPT/HCPCS: 73630